=== PATIENT | female | born 1950 | race Caucasian/White ===

== ENCOUNTER 2025-01-11 16:37 | Outpatient (AMB) | payer MEDICARE, SELFPAY ==
--- OUTSIDE RECORDS SUMMARY | 2025-01-11 17:47 | XMS_ITS | Clinical Summary ---
Author Organization [facility] Address [address] [place] [address] Care Team Providers Care [employer] Name Role Phone Jamshid Duran MD Primary Care Provider Allergies Active Allergy Reactions Criticality Noted Date Comments Penicillin V Anaphylaxis High 06/30/2019 Medications atorvastatin (LIPITOR) 20 MG tablet Take 20 mg by mouth. Active clonazePAM (KlonoPIN) 1 MG tablet Take 1 mg by mouth nightly as needed. Active DULoxetine (CYMBALTA) 30 MG capsule Take 30 mg by mouth. Active LORazepam (ATIVAN) 0.5 MG tablet Take 0.5 mg by mouth 4 times daily (every 6 hours) as needed. Active Social History Tobacco Use Types Packs/Day Years Used Date Smoking Tobacco: Never Smokeless Tobacco: Never Alcohol Use Standard Drinks/Week Comments Never 0 (1 standard drink = 0.6 oz pur e alcohol) AUDIT-C Answer Date Recorded Frequency of Alcohol Consumption Never 06/30/2019 Average Number of Drinks Not on file 020 Frequency of Binge Drinking Not on file 09/2019 Comments Unknown Sex and Gender Information Value Date Recorded Sex Assigned at Not on file Legal Sex Female 6:37 PM EST Gender Identity Not on file Sexual Orientation Not on file Last Filed Vital Signs Vital Sign Reading Time Taken Comments Blood Pressure 94/62 01/17/2021 2:50 PM EDT Pulse 65 01/17/2021 2:50 PM EDT Temperature 35.9 C (96.6 F) 01/17/2021 2:50 PM EDT Respiratory Rate 16 01/17/2021 2:50 PM EDT Oxygen Saturation - - Inhaled Oxygen Concentration - - Weight 75.9 kg (167 lb 6.4 oz) 01/17/2021 2:50 P M EDT Height 160 cm (5' 3 ) 01/17/2021 2:50 PM EDT Body Mass Index 29.65 01/17/2021 2:50 PM EDT Plan of Treatment Health Maintenance Due Date Last Done Comments Hepatitis C Virus Screening 1950 DTaP/Tdap/Td Vaccines (1 - Tdap) 02/16/1967 Pneumococcal Vaccines 50+ (1 of 1 - PCV) 02/16/1998 Zoster (Shingles) Vaccine (1 of 2) 02/16/1998 DXA Bone Density (Females,Ag es 65 and older) 02/16/2013 RSV Vaccine 60 years and old er and Patients (1 - 1-dose 75+ series) 02/16/2023 COVID-19 Vaccine ( - 2023-2 5 season) 2024 Influenza Vaccine 12/24/2024 Hepatitis B Vaccines Aged Out No long er eligible based on patient's age to complete this topic Insurance [facility] MEDICARE Care Teams [employer] Relationship Specialty Start Date End Date Jamshid Duran MD [address] [place] [id number] PCP - General 01/17/21
--- OUTSIDE RECORDS SUMMARY | 2025-01-11 17:47 | XMS_ITS ---
Author Name [facility] Organization Unknown History of Medication Use Medication Directions Dispensed Refills Start Date End Date Stat us atorvastatin (LIPITOR) 20 mg tablet Take 1 tablet (20 mg total) by mouth 1 (one) time each day. active gabapentin (NEURONTIN) 300 mg capsule Take 1 capsule (300 mg total) by mouth 2 (two) times a day. active LORazepam (ATIVAN) 0.5 mg tablet Take 1 tablet (0.5 mg total) by mouth every 6 (six) hours if needed. Max Daily Amount: 2 mg active sertraline (ZOLOFT) 100 mg tablet Take 1 tablet (100 mg total) by mouth 1 (one) time each day. active solifenacin succinate (SOLIFENACIN ORAL) Take by mouth. ac tive Allergies Allergen Reaction Severity Comment Documented Date Source Statu s IODINATED CONTRAST MEDIA 03/09/2024 [facility] active POLLEN EXTRACTS COUGH 05/22/2023 [facility] ac tive PENICILLINS ANAPHYLAXIS 2019 [facility] ac tive Problems Problem Status Onset Date Problem Type Date of Resoluti on Source Chronic back pain active 2024-03-09 ProblemAct [facility] Hiatal hernia active 2024-03-09 ProblemAct [facility] Osteopenia active 2024-03-09 ProblemAct [facility] Acquired genu valgum, bilateral active 2023-12-02 ProblemAct [facility] Bilateral leg weakness active 2024-03-10 ProblemAct [facility] Primary osteoarthritis of right knee active 2024-03-10 ProblemAct [facility] Fibromyalgia active 2024-03-09 ProblemAct [facility] CTS (carpal tunnel syndrome) active 2024-03-09 ProblemAct [facility] IgM monoclonal gammopathy of uncertain significance active 2024-03-[address] [facility] Post herpetic neuralgia active 2024-03-09 ProblemAct [facility] Keratosis active 2024-03-09 ProblemAct [facility] Waldenstrom's macroglobulinemia active 2024-03-09 ProblemAct [facility] Depression with anxiety active 2024-03-09 ProblemAct [facility] Spondylosis of lumbosacral region active 2024-03-09 ProblemAct [facility] N Compression fracture of T12 vertebra active 2024-03-10 ProblemAct [facility] Gait instability active 2024-03-10 ProblemAct C [facility] CKD (chronic kidney disease) stage 3, GFR 30-59 ml/min active 2024-03-10 ProblemAct [facility] Migraine without aura active 2024-03-09 ProblemAct [facility] Hyperlipidemia active 2024-03-09 ProblemAct [facility] Primary osteoarthritis of left knee active 2024-03-10 ProblemAct [facility] Immunizations Vaccine Date Source Lot Number Status [facility] SARS-CoV-2 COVID-19, mRNA, LNP-S, preservative free 11/01/2020 [facility] [id number] completed [facility] SARS-CoV-2 COVID-19, mRNA, LNP-S, preservative free 10/11/2020 [facility] [id number] completed
--- OUTSIDE RECORDS SUMMARY | 2025-01-11 17:47 | XMS_ITS | Clinical Summary ---
Author Organization [facility] Address [address] [place] [phone] Phone Care Team Providers Care Test Engineering Manager Name Role Phone Alysa Lucas NP Primary Care Provider Allergies Active Allergy Reactions Criticality Noted Date Comments Iodinated Contrast Media 03/09/2024 Penicillins Anaphylaxis High 2019 Pollen Extracts Cough Medium 05/22/2023 Medications solifenacin succinate (SOLIFENACIN ORAL) Take by mouth. Active atorvastatin (LIPITOR) 20 mg tablet Take 1 tablet (20 mg total) by mouth 1 (one) time each day. Active gabapentin (NEURONTIN) 300 mg capsule Take 1 capsule (300 mg total) by mouth 2 (two) times a day. Active LORazepam (ATIVAN) 0.5 mg tablet Take 1 tablet (0.5 mg total) by mouth every 6 (six) hours if needed. Max Daily Amount: 2 mg Active sertraline (ZOLOFT) 100 mg tablet Take 1 tablet (100 mg total) by mouth 1 (one) time each day. Active Hospital, Clinic, or Other Facility Administered Medication Ordered Dose Route Frequency Start Date End Date Status BUPivacaine HCl (MARCAINE) 0.5 % injection 2 mLIndications:Bilater al knee pain,Primary osteoarthritis of left knee,Primary osteoarthritis of right knee 2 mL inj Once PRN Procedure 01/04/2025 01/04/2025 Ended BUPivacaine HCl (MARCAINE) 0.5 % injection 2 mLIndications:Bilater al knee pain,Primary osteoarthritis of left knee,Primary osteoarthritis of right knee 2 mL inj Once PRN Procedure 01/04/2025 01/04/2025 Ended lidocaine (XYLOCAINE) 1 % injection 2 mLIndications:Bilater al knee pain,Primary osteoarthritis of left knee,Primary osteoarthritis of right knee 2 mL inj Once PRN Procedure 01/04/2025 01/04/2025 Ended lidocaine (XYLOCAINE) 1 % injection 2 mLIndications:Bilater al knee pain,Primary osteoarthritis of left knee,Primary osteoarthritis of right knee 2 mL inj Once PRN Procedure 01/04/2025 01/04/2025 Ended triamcinolone acetonide (KENALOG-40) 40 mg/mL injection 40 mgIndications:Bilater al knee pain,Primary osteoarthritis of left knee,Primary osteoarthritis of right knee 40 mg IAtc Once PRN Procedure 01/04/2025 01/04/2025 Ended triamcinolone acetonide (KENALOG-40) 40 mg/mL injection 40 mgIndications:Bilater al knee pain,Primary osteoarthritis of left knee,Primary osteoarthritis of right knee 40 mg IAtc Once PRN Procedure 01/04/2025 01/04/2025 Ended Active Problems Problem Noted Date Diagnosed Date Bilateral leg weakness 03/10/2024 CKD (chronic kidney disease) stage 3, GFR 30-59 ml/min (CMS/HCC V24, CMS/HCC V28) 03/10/2024 Compression fracture of T12 vertebra (CMS/HCC V24, CMS/HCC V28) 03/10/2024 Gait instability 03/10/2024 Primary osteoarthritis of left knee 03/10/2024 Primary osteoarthritis of right knee 03/10/2024 Chronic back pain 03/09/2024 CTS (carpal tunnel syndrome) 03/09/2024 Depression with anxiety 03/09/2024 Fibromyalgia 03/09/2024 Hiatal hernia 03/09/2024 Hyperlipidemia 03/09/2024 IgM monoclonal gammopathy of uncertain significa nce 03/09/2024 Keratosis 03/09/2024 Migraine without aura 03/09/2024 Osteopenia 03/09/2024 Post herpetic neuralgia 03/09/2024 Spondylosis of lumbosacral region 03/09/2024 Waldenstrom's macroglobulinemia 03/09/2024 Acquired genu valgum, bilateral 12/02/2023 Encounters Date Type Department Care Team Description 01/04/2025 1:00 PM EDT Office Visit Orthopedic Surgery [facility] [address] [phone] Jayme Saldaña MD Bilateral knee pain (Primary Dx); Primary osteoarthritis of left knee; Primary osteoarthritis of right knee from Last 3 Months Immunizations Name Administration Dates Next Due Pfizer SARS-CoV-2 COVID-19, mRNA, LNP-S, preservative free 11/01/2020,10/11/2020 Surgical History Surgery Date Site/Laterality Comments TONSILLECTOMY N/A PROCEDURE: HISTORICAL TONSILLECTOMY HYSTERECTOMY N/A PROCEDURE: HISTORICAL HYSTERECTOMY CHOLECYSTECTOMY N/A PROCEDURE: HISTORICAL CHOLECYSTECTOMY Family History Medical History Relation Name Comments Other: hyperlipidemia Father Heart failure Mother Osteoporosis Mother Other cancer Mother Other: hyperlipidemia Mother Breast cancer Sister 1 Diabetes Sister 1 Mental illness Sister 1 Other: non-hodgkin's lymphoma Sister 1 Leukemia Sister 2 Multiple sclerosis Sister 2 Relation Name Status Comments Father Mother Sister 1 Sister 2 Alive Social History Tobacco Use Types Packs/Day Years Used Date Smoking Tobacco: Never Smokeless Tobacco: Never Alcohol Use Standard Drinks/Week Comments Yes 3 (1 standard drink = 0.6 oz pur e alcohol) Comments Unknown Sex and Gender Information Value Date Recorded Sex Assigned at Not on file Legal Sex Female 8:40 PM EST Gender Identity Not on file Sexual Orientation Not on file Obstetrics History Last Filed Vital Signs Vital Sign Reading Time Taken Comments Blood Pressure - - Pulse - - Temperature - - Respiratory Rate - - Oxygen Saturation - - Inhaled Oxygen Concentration - - Weight 77.1 kg (170 lb) 06/10/2024 3:30 PM EST Height 160 cm (5' 3 ) 06/10/2024 3:30 PM EST Body Mass Index 30.11 06/10/2024 3:30 PM EST Plan of Treatment Upcoming Encounters Date Type Department Care Team (Late st Contact Info) Description 05/11/2025 2:30 PM EST Office Visit Orthopedic Surgery [facility] [address] [phone] Jayme Saldaña MD [address] [phone] Health Maintenance Due Date Last Done Comments COVID-19 Vaccine (3 - Pfizer risk series) 11/29/2020 11/01/2020, 10/11/2020 Cholesterol Screening (Lipid Panel) 04/27/2022 Falls Risk Assessment 04/27/2022 Hepatitis C Screening 04/27/2022 Medicare Annual Wellness Visit 04/27/2022 Osteoporosis Screening (Bone Density Screening) 04/27/2022 Social Influencers of Health Screening 04/27/2022 RSV Immunization Adult Patients (1 - 1-dose 75+ series) 02/16/2023 Depression Screening 05/26/2024 Influenza Vaccine (#1) 2025 DTaP,Tdap,and Td Vaccines (2 - Td or Tdap) 07/31/2026 07/31/2016 Pneumococcal Vaccine: 50+ Years Completed 04/01/2018, 04/28/2017 Zoster Vaccines Completed 10/11/2023, 07/25/2023 HIB Vaccines Aged Out No longer eligi ble based on patient's age to complete this topic HPV Vaccines Aged Out No longer eligi ble based on patient's age to complete this topic Hepatitis A Vaccines Aged Out No long er eligible based on patient's age to complete this topic Hepatitis B Vaccines Aged Out No long er eligible based on patient's age to complete this topic IPV Vaccines Aged Out No longer eligi ble based on patient's age to complete this topic MMR Vaccines Aged Out No longer eligi ble based on patient's age to complete this topic Meningococcal ACWY Vaccine Aged Out N o longer eligible based on patient's age to complete this topic Meningococcal B Vaccine Aged Out No l onger eligible based on patient's age to complete this topic RSV Immunization Patients Under 20 months Aged Out No longer eligible b ased on patient's age to complete this topic Varicella Vaccines Aged Out No longer eligible based on patient's age to complete this topic Procedures Procedure Name Priority Date/Time Associated Diagnosis Comments IL ARTHROCENTESIS/ASP IRATION/INJECTION MAJOR JOINT/BURSA W/O U/S GUIDANCE Routine 01/04/2025 1:00 PM EDT Bilateral knee pain Primary osteoarthritis of left knee Primary osteoarthritis of right knee XR KNEE 4+ VIEWS BILAT Routine 01/04/2025 12:59 PM EDT Bilateral knee pain Primary osteoarthritis of left knee Primary osteoarthritis of right knee from Last 3 Months Results * IL ARTHROCENTESIS/ASPIRATION/INJECTION MAJOR JOINT/BURSA W/O U/S GUIDANCE (01/04/2025 1:00 PM EDT) Narrative Jayme Saldaña MD - 01/04/2025 1:00 PM EDT Jayme Saldaña MD 01/04/2025 3:10 PM L Inj/Asp: bilateral knee Indications: pain Details: 22 G needle, anterolateral approach Medications (Right): 2 mL BUPivacaine HCl 0.5 %; 2 mL lidocaine 1 %; 40 mg triamcinolone acetonide 40 mg/mL Medications (Left): 2 mL BUPivacaine HCl 0.5 %; 2 mL lidocaine 1 %; 40 mg triamcinolone acetonide 40 mg/mL Procedure: After discussion of risks and benefits, informed consent was verbally obtained for BILATERAL knee corticosteroid injections. The lateral arthroscopic soft spots were identified and marked. These were sterilized with chlorhexidine and alcohol. I then injected 2ml of 1% plain Lidocaine, 2ml 0.25% plain bupivacaine, and 40 mg of Kenalog intra-articularly without resistance into each knee. Hemostasis was achieved and sterile Band-Aids were applied. The patient tolerated the procedures well. Postinjection risks and instructions were reviewed including activity modification, cold therapy, potential NSAIDs use, effects on blood sugar levels, and monitoring for signs of complications. Informed Consent: Laterality: Bilateral Relevant images/test results available and reviewed: yes Health status cleared: Yes Procedure/treatment, purpose, treatment alternatives, risks/potential complications and benefits explained: yes Patient questions answered: yes Patient agrees, verbalizes understanding, and wants to proceed: yes Consent given by: Patient Informed consent discussion completed by Physician/EDOUARD with patient: Verbal Pre-procedure timeout performed: yes us Jayme Saldaña MD IN CLINIC/BEDSIDE ORD ERABLES Final Result * XR Knee 4+ Views bilat (01/04/2025 12:59 PM EDT) Anatomical Region Laterality Modality Lower Extremities, Knee Bilateral Computed Radiography Narrative 01/06/2025 7:55 AM EDT 4 views weightbearing bilateral knees obtained today including AP, Ortega, lateral, sunrise were reviewed. Bilateral knees show severe degenerative change involving the lateral compartment including complete joint space narrowing, small marginal size, subchondral sclerosis. Mild degenerative changes involving patellofemoral compartment. Small effusion bilaterally. Neutral alignment bilaterally. Compared to prior x-rays obtained 03/10/2024 right knee now shows [id number] articulation involving the lateral compartment on the lateral view, left knee also shows [id number] articulation involving lateral compartment. Jayme Saldaña MD IMG XR PROCEDURES Fin al Result from Last 3 Months Insurance [employer] [place] - [place] Care Teams Test Engineering Manager Relationship Specialty Start Date End Date Alysa Lucas NP [address] [place], [place] PCP - General 03/11/24
== END 2025-01-11 16:47 | disposition home or self-care (01) ==
LOC: HO.HMGAL 16:37
PROVIDERS: PCP Internal Medicine; Visit Provider Registered Nurse Emergency
DX: J30.89 Other allergic rhinitis (principal)
CPT/HCPCS: 95117; 95165

== ENCOUNTER 2025-02-07 15:44 | Outpatient (AMB) | payer MEDICARE, SELFPAY ==
--- OUTSIDE RECORDS SUMMARY | 2025-02-04 13:41 | XMS_ITS | Encounter Summary ---
Author Organization [facility] Address [address] [place] [phone] Phone Care Team Providers Care International Recruiter Name Role Phone Shannen Tubbs Unavailable Unavailable Wojciech Zuleta MD Unavailable [phone] Alysa Lucas [employer]EE PL[employer]ATION WORKER Primary Care Provider + Encounter Details Date Type Department Care Team (Latest Contact Info) Description 02/04/2025 1:41 PM EDT - 02/04/2025 11:59 PM EDT Hospital Encounter [facility] [address] [place] [address] Ivan Reyes MD, MS [address] [address] [email or web address] Arrived Discharge Disposition: Home or Self Care Social History Tobacco Use Types Packs/Day Years Used Date Smoking Tobacco: Never Smokeless Tobacco: Never Alcohol Use Standard Drinks/Week Comments Not Currently 0 (1 standard drink = 0.6 oz pur e alcohol) Education Answer Date Recorded Are you interested in more education? Not on erika e 09/20/2022 Are you concerned about learning? Not on file 09/20/2022 No 09/20/2022 No 09/20/2022 Digital Access Answer Date Recorded No 10/19/2022 No 10/19/2022 Reliable internet access at home? Not on file 10/19/2022 Device with a working camera? Not on file Intimate Partner Violence Answer Date R ecorded Are you denied basic needs s uch as food, clothing, or medical care? No 10/16/2023 In the past 12 months have y ou been in a relationship with a person who hurts, threatens, or tries to control you? No 10/16/2023 Are you denied basic needs s uch as food, clothing, or medical care? No 10/16/2023 In the past 12 months have y ou been in a relationship with a person who hurts, threatens, or tries to control you? No 10/16/2023 Comments Unknown Sex and Gender Information Value Date Recorded Sex Assigned at Female 10/16/2023 4:28 PM EDT Legal Sex Female 10:37 PM EDT Gender Identity Female 10/16/2023 4:28 PM EDT Sexual Orientation Straight 10/22/2023 9: 43 PM EDT documented as of this encounter Medications at Time of Discharge atorvastatin (LIPITOR) 40 MG tablet Take 1 tablet by mouth every morning. 09/16/2024 cetirizine (ZYRTEC) 10 MG tablet Take 10 mg by mouth daily. esomeprazole (NEXIUM) 20 MG capsule Take 20 mg by mouth daily before breakfast. gabapentin (NEURONTIN) 300 MG capsule Take 600 mg by mouth 3 (three) times a day. LORazepam (ATIVAN) 0.5 MG tablet Take 0.5 mg by mouth every 6 (six) hours as needed for anxiety. Medication-Free Text 2 x month allergy injections sertraline (ZOLOFT) 100 MG tabletIndication s:major depressive disorder Take 100 mg by mouth daily. Indications: major depressive disorder 03/12/2022 solifenacin (VESICARE) 5 MG tablet Take 5 mg by mouth daily. documented as of this encounter Plan of Treatment Upcoming Encounters Date Type Department Care Team (Late st Contact Info) Description 02/10/2025 3:00 PM EDT Office Visit [facility] [place]monary, Allergy and Critical Care Medicine [address] [place] [phone] Ivan Reyes MD, MS 10 [facility] 2nd [place] [address] 04/14/2025 3:20 PM EST Office Visit [facility] [address] [place] [address] Wojciech Zuleta MD [address] [place] [address] [email or web address] documented as of this encounter Procedures Procedure Name Priority Date/Time Associated Diagnosis Comments PULMONARY FUNCTION TEST Routine 02/04/2025 2:16 PM EDT Ground glass opacity present on imaging of lung documented in this encounter Results * Pulmonary Function Test Reason for Exam: Other (specify) (groundglass opacities on chest CT); Type of PFT Test: Spirometry with bronchodilator, Lung Volumes, DLCO; Performing Location: [facility] (02/04/2025 2:16 PM EDT) FEV1 2.21 liters FVC 2.78 liters FEV1/FVC 80 % TLC 4.24 liters DLCO 13.26 ml/mmHg sec Anatomical Region Laterality Modality Other Impressions 02/04/2025 2:16 PM EDT PULMONARY FUNCTION STUDIES Full pulmonary function studies were performed on this 74 y.o. year-old female for evaluation of ground glass opacities. Review of the medical record reveals that the patient is a never smoker. Prior pulmonary function studies are not available for comparison. SPIROMETRY: The FEV1 is normal at 2.21 L or 115% predicted. The FVC is normal at 2.78 L or 111% predicted. The FEV1/FVC ratio is normal at 80%. After the administration of a bronchodilator agent, there is no technically significant change. FLOW-VOLUME LOOPS: Evaluation of the flow-volume loops reveals normal morphology of both the inspiratory and expiratory limbs with no significant difference when comparing the tracings performed pre- and post-bronchodilator. LUNG VOLUME MEASUREMENTS BY PLETHYSMOGRAPHY: The total lung capacity is normal at 4.24 L or 90% predicted. The RV/TLC ratio is normal at 33%. DIFFUSION CAPACITY: The diffusion capacity is mildly impaired (z-score between - 1.65 and -2.5) at 13.3 mL/mmHg sec or 73% predicted. Resting oxygen saturation is 97% on room air. IMPRESSION: Abnormal pulmonary function studies as evidenced primarily by an isolated minimal impairment in diffusion capacity which, in this clinical context, may be secondary to anemia, pulmonary vascular disease and/or early interstitial lung disease. Lung volumes are normal. Spirometry reveals no evidence of airflow limitation and no bronchodilator response. Technical Note: As of 04/06/2024, the [facility] Pulmonary Function Testing (PFT) Laboratory transitioned from using race-specific to using race-neutral equations for determining lung function predicted values for all persons. Due to this change some individuals previously classified as either normal or abnormal may now change from one to the other category without a true change in lung function. Such changes, as well as changes in severity classification, should be considered broadly and in their clinical context. Absolute values of lung function are unaffected. For further questions please contact the interpreting physician or PFT scientific laboratory supervisor. For further discussion of this issue please see [place] et al [facility] 2022;[phone]([id number]. Please Note: Not all PFT labs within, or outside of, our system will be transitioning to new reference equations at the same time. For this reason, please pay close attention to absolute values when comparing results done at different testing locations within or outside of our system. us Ivan Reyes MD, MS PFT ORDERABLES Final Re sult documented in this encounter Visit Diagnoses Diagnosis Ground glass opacity present on imaging of lung documented in this encounter Administered Medications Inactive Administered Medications - up to 3 most recent administrations Medication Order MAR Action Action Date Dose Rate Site albuterol 90 mcg/actuation inhaler 2-4 puff 2-4 puff, Inhalation, Once, On Fri02/04/25 at 1430, For 1 dose, Pulmonary , Shake Well Given 02/04/2025 2:14 PM EDT 2 puffs documented in this encounter Care Teams International Recruiter Relationship Specialty Start Date End Date Alysa Lucas NP [address] [place] [phone] PCP - General Nurse Practitioner 11/30/22 Shannen Tubbs 01/22/19 Wojciech Zuleta MD [address] [place] [phone] [email or web address] Primary Oncologist Medical Oncology 02/13/22 documented as of this encounter Additional Source Comments The information contained in this document represents components of the legal health record. It is not the complete legal health record.[facility]
--- OUTSIDE RECORDS SUMMARY | 2025-02-07 21:02 | XMS_ITS | Encounter Summary ---
Author Organization [facility] Address [address] [place] [address] Phone Care Team Providers Care Darkroom Technician Name Role Phone Shannen Tubbs Unavailable Unavailable Wojciech Zuleta MD Unavailable [phone] Alysa Lucas NP Primary Care Provider + Reason for Referral * MRI/CAT Scan - Closed Specialty Diagnoses / Procedures Referred By Kristofer neff Referred To Contact Radiology Diagnoses Chronic vomiting Procedures MRI Brain CHG MRI BRAIN COMBO CHG MRI BRAIN Fiorella Norwood PA [address] [place] [address] Phone: tel: fax: Referral ID Status Reason Start Date Expiration Date Visits Re quested Visits Authorized [id number] Closed 02/15/2023 02/15/2023 1 1 Encounter Details Date Type Department Care Team (Latest Contact Info) Description 01/20/2023 Transcribe Orders Virtual Department 30 [place] [address] Fiorella Norwood PA [address] [place] [phone] Chronic vomiting (Primary Dx) Social History Tobacco Use Types Packs/Day Years [...] with a working camera? Not on file Comments Unknown Sex and Gender Information Value Date Recorded Sex Assigned at Female 10/16/2023 4:28 PM EDT Legal Sex Female 10:37 PM EDT Gender Identity Female 10/16/2023 4:28 PM EDT Sexual Orientation Straight 10/22/2023 9: 43 PM EDT documented as of this encounter Plan of Treatment Upcoming Encounters Date Type Department Care Team (Late st Contact Info) Description 02/10/2025 3:00 PM EDT [place] [facility] [place] Allergy and Critical Care Medicine 10 [facility] [place] [address] Ivan Reyes MD, MS [address] [address] 04/14/2025 3:20 PM EST Office Visit [facility] at [address] [address] Wojciech Zuleta MD [address] [place] [address] [email or web address] documented as of this encounter Results * MRI BRAIN WITHOUT CONTRAST (02/15/2023 3:24 PM EDT) Anatomical Region Laterality Modality Head Magnetic Resonan ce 02/19/2023 5:24 PM EDT Impressions 02/19/2023 7:44 PM EDT 1. No acute infarct, mass lesion, hemorrhage or hydrocephalus. 2. 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 Narrative 02/19/2023 7:44 PM EDT MRI BRAIN WITHOUT CONTRAST TECHNIQUE: MRI BRAIN WITHOUT CONTRAST Multi-sequence, multi-planar MRI of the brain was performed without intravenous contrast. COMPARISON: MRI BRAIN OUTSIDE (NO INTERPRETATION) FINDINGS: Brain Parenchyma: There is an old infarct in the inferior right parietal lobe developed since February 2016. No evidence of acute infarct, mass lesion, or hemorrhage. Ventricular System and Extra-Axial Spaces: Normal. No evidence of midline shift or hydrocephalus. Extracranial Structures: Arterial flow voids in the skull base are present. Procedure Note Veto Titus MD, PhD - 02/19/2023 MRI BRAIN WITHOUT CONTRAST TECHNIQUE: MRI BRAIN WITHOUT CONTRAST Multi-sequence, multi-planar MRI of the brain was performed withoutintravenous contrast. COMPARISON: MRI BRAIN OUTSIDE (NO INTERPRETATION) FINDINGS: Brain Parenchyma: There is an old infarct in the inferior right parietallobe developed since February 2016. No evidence of acute infarct, masslesion, or hemorrhage. Ventricular System and Extra-Axial Spaces: Normal. No evidence of midlineshift or hydrocephalus. Extracranial Structures: Arterial flow voids in the skull base arepresent. IMPRESSION: 1. No acute infarct, mass lesion, hemorrhage or hydrocephalus. 2. Old infarct in the inferior right parietal lobe developed sinceFebruary 2016. us Fiorella BERMUDEZ IMG MR HEAD/NECK Final Resu lt * FL BARIUM SWALLOW ESOPHAGRAM DOUBLE CONTRAST (02/03/2023 2:02 PM EDT) Anatomical Region Laterality Modality Chest Computed Radiogr aphy 02/03/2023 2:47 PM EDT Impressions 02/04/2023 2:44 PM EDT 1. Small sliding hiatal hernia. 2. Mild, intermittent smooth narrowing of the far distal esophagus immediately proximal to the hiatal hernia may be related to mild esophagitis. No findings suspicious for mass or clinically significant stricture. 3. Moderate esophageal dysmotility. 4. Nonobstructive cricopharyngeus muscle impression, probably clinically insignificant. FLUOROSCOPY TIME: 2 minutes 28 seconds NUMBER OF IMAGES: [id number] ATTESTATION: Juan Kingsley as teaching physician, have reviewed the images for this case and if necessary edited the report originally created by Zi Garcia. Narrative 02/04/2023 2:44 PM EDT BARIUM SWALLOW ESOPHAGRAM DOUBLE CONTRAST HISTORY: Chronic vomiting. Gastroesophageal reflux disease. COMPARISON: CT abdomen 01/03/2022. OPERATORS: Zi Garcia SUPERVISING PHYSICIAN: Juan Calloway TECHNIQUE: Double contrast barium swallow examination was performed with Sodium Carbonate and Barium. FINDINGS: A preliminary lateral view of the neck demonstrates degenerative changes of the cervical spine. No acute bony pathology. ESOPHAGUS: Motility: Moderate dysmotility represented by a diminished primary wave and tertiary contractions. Mucosa: Nonobstructive cricopharyngeus muscle impression visualized. Distensibility: Normal. GASTROESOPHAGEAL JUNCTION: Small sliding hiatal hernia. TABLET: Persistent hold up of a standard 13 mm barium tablet at the level of the GE junction most likely related to dysmotility. GASTROESOPHAGEAL REFLUX: None observed despite provocative maneuvers. Procedure Note Juan Calloway MD - 02/04/2023 BARIUM SWALLOW ESOPHAGRAM DOUBLE CONTRAST HISTORY: Chronic vomiting. Gastroesophageal reflux disease. COMPARISON: CT abdomen 01/03/2022. OPERATORS: Zi Garcia SUPERVISING PHYSICIAN: Juan Calloway TECHNIQUE: Double contrast barium swallow examination was performed withSodium Carbonate and Barium. FINDINGS: A preliminary lateral view of the neck demonstrates degenerative changesof the cervical spine. No acute bony pathology. ESOPHAGUS: Motility: Moderate dysmotility represented by a diminished primary waveand tertiary contractions. Mucosa: Nonobstructive cricopharyngeus muscle impression visualized. Distensibility: Normal. GASTROESOPHAGEAL JUNCTION: Small sliding hiatal hernia. TABLET: Persistent hold up of a standard 13 mm barium tablet at the levelof the GE junction most likely related to dysmotility. GASTROESOPHAGEAL REFLUX: None observed despite provocative maneuvers. IMPRESSION: 1. Small sliding hiatal hernia. 2. Mild, intermittent smooth narrowing of the far distal esophagusimmediately proximal to the hiatal hernia may be related to mildesophagitis. No findings suspicious for mass or clinically significantstricture. 3. Moderate esophageal dysmotility. 4. Nonobstructive cricopharyngeus muscle impression, probably clinicallyinsignificant. FLUOROSCOPY TIME: 2 minutes 28 seconds NUMBER OF IMAGES: 249 ATTESTATION: I, Juan Calloway as teaching physician, have reviewed theimages for this case and if necessary edited the report originally createdby Zi Garcia. us Fiorella BERMUDEZ IMG FL MISC Final Resul t documented in this encounter Visit Diagnoses Diagnosis Chronic vomiting- Primary Vomiting alone Chronic vomiting Vomiting alone Chronic vomiting Vomiting alone documented in this encounter Care Teams Darkroom Technician Relationship Specialty Start Date End Date Alysa Lucas NP [address] [place] [address] PCP - General Nurse Practitioner 11/30/22 Shannen Tubbs 01/22/19 Wojciech Zuleta MD [address] [place] [address] [email or web address] Primary Oncologist Medical Oncology 02/13/22 documented as of this encounter Additional Source Comments The information contained in this document represents components of the legal health record. It is not the complete legal health record.[facility]
--- OUTSIDE RECORDS SUMMARY | 2025-02-07 21:02 | XMS_ITS | Encounter Summary ---
Author Organization [facility] Address [address] [place] [address] Phone Care Team Providers Care Nursing Staffing Coordinator Name Role Phone Shannen Tubbs Unavailable Unavailable Wojciech Zuleta MD Unavailable [phone] Alysa Lucas NP Primary Care Provider + Encounter Details Date Type Department Care Team (Late Contact Info) Description 09/25/2023 Procedure Pass [facility], Ct Scan - [facility] 30 [place] [address] Social History Tobacco Use Types Packs/Day Years [...] Description 02/10/2025 3:00 PM EDT Office Visit [facility] Pulmonary, Allergy and Critical Care Medicine [address] [place], [place] [phone] Ivan Reyes MD, MS 10 [facility] 2nd [place] [address] 04/14/2025 3:20 PM EST Office Visit [facility] 30 [place] [address] Wojciech Zuleta MD [address] [place] [address] documented as of this encounter Visit Diagnoses Not on filedocumented in this encounter Care Teams Nursing Staffing Coordinator Relationship Specialty Start Date End Date Alysa Lucas NP [address] [place] [address] PCP - General Nurse Practitioner 11/30/22 Shannen Tubbs 01/22/19 Wojciech Zuleta MD [address] [place] [address] Primary Oncologist Medical Oncology 02/13/22 documented as of this encounter Additional Source Comments The information contained in this document represents components of the legal health record. It is not the complete legal health record.[facility]
--- OUTSIDE RECORDS SUMMARY | 2025-02-07 21:02 | XMS_ITS | Encounter Summary ---
Author Organization [facility] Address [address] [place] [address] Phone Care Team Providers Care Comptroller Name Role Phone Jamshid Duran MD Primary Care Provider [phone] Shannen Tubbs Unavailable Unavailable Wojciech Zuleta MD Unavailable [phone] Alysa Lucas NP Primary Care Provider + Encounter Details Date Type Department Care Team (Latest Contact Info) Description 11/07/2021 Transcribe Orders [facility] [address] 2nd [place] [address] Romaine Herbert MD [address] [address] Abdominal pain, epigastric (Primary Dx); Nausea; Vomiting, unspecified vomiting type, unspecified whether nausea present; Abdominal pain, right upper quadrant Social History Tobacco Use Types Packs/Day Years [...] Critical Care Medicine [address] [place] [address] Ivan Reyes MD, MS 10 [facility] 2nd [place] [address] 04/14/2025 3:20 PM EST Office Visit [facility] at [address] [address] Wojciech Zuleta MD [address] [place] [address] [email or web address] documented as of this encounter Results * Lipase (11/07/2021 1:53 PM EDT) LIPASE 38 16 - 63 U/L [facility] Blood 11/07/2021 1:53 PM EDT 11/07/2021 1:56 PM EDT us Romaine Herbert MD LAB BLOOD ORDERABLES Final Resul t [address] [address] * (ABNORMAL) Comprehensive metabolic panel (11/07/2021 1:53 PM EDT) SODIUM 140 133 - 146 mmol/L [facility] POTASSIUM 5.4(H) 3.3 - 5.1 mmol/L [facility] CHLORIDE 105 96 - 108 mmol/L [facility] CO2 25 21 - 35 mmol/L [facility] BUN 11 6 - 19 mg/dL [facility] CREATININE 0.90 0.5 - 1.5 mg/dL [facility] GLUCOSE 104(H) 70 - 99 mg/dL [facility] ALBUMIN 4.4 3.9 - 4.8 g/dL [facility] TOTAL PROTEIN 7.1 6.5 - 8.0 g/dL [facility] CALCIUM 9.7 8.4 - 10.3 mg/dL [facility] ALKALINE PHOSPHATASE 76 39 - 117 U/L [facility] TOTAL BILIRUBIN 0.5 0.0 - 1.2 mg/dL [facility] AST 24 0 - 37 U/L [facility] ALT 18 0 - 40 U/L [facility] GLOBULIN 2.7 1 - 4.8 g/dL [facility] EGFR 68 >59 mL/min/1.7 3m2 [facility] Comment:Estimated glomerular filtration rate calculated using the CKD-EPI refit equation. ANION GAP 15 10 - 20 mmol/L [facility] Blood 11/07/2021 1:53 PM EDT 11/07/2021 1:56 PM EDT us Romaine Herbert MD LAB BLOOD ORDERABLES Final Resul t [facility] 30 [place] [address] * CBC (11/07/2021 1:53 PM EDT) WBC 4.63 4.00 - 11.00 K/uL [facility] RBC 4.53 3.72 - 5.30 M/uL [facility] HGB 14.4 11.4 - 15.9 g/dL [facility] HCT 43.9 34.2 - 46.8 % [facility] PLT 316 140 - 430 K/uL [facility] MCV 96.9 78.0 - 97.0 fL [facility] MCH 31.8 25.0 - 33.0 pg [facility] MCHC 32.8 32.0 - 36.0 g/dL [facility] RDW 12.6 11.0 - 16.0 % [facility] MPV 11.9 8.4 - 12.8 fl [facility] NRBC 0.00 0 /100 WBCs [facility] ABSOLUTE NRBC 0.00 0 K/uL [facility] Blood 11/07/2021 1:53 PM EDT 11/07/2021 1:56 PM EDT us Romaine Herbert MD LAB BLOOD ORDERABLES Final Resul t [facility] 30 [place] [address] documented in this encounter Visit Diagnoses Diagnosis Abdominal pain, epigastric- Primary Nausea Nausea alone Vomiting, unspecified vomiting type, unspecified whether nausea present Abdominal pain, right upper quadrant documented in this encounter Care Teams Comptroller Relationship Specialty Start Date End Date Jamshid Duran MD [address] [place] [address] PCP - General Internal Medicine 01/22/19 11/29/22 Alysa Lucas NP [address] [place] [address] PCP - General Nurse Practitioner 11/30/22 Shannen Tubbs 01/22/19 Wojciech Zuleta MD 30 [place] [address] Primary Oncologist Medical Oncology 02/13/22 documented as of this encounter Additional Source Comments The information contained in this document represents components of the legal health record. It is not the complete legal health record.[facility]
--- OUTSIDE RECORDS SUMMARY | 2025-02-07 21:02 | XMS_ITS | Encounter Summary ---
Author Organization [facility] Address [address] [place] [address] Phone Care Team Providers Care Aircraft Mechanic Armament Name Role Phone Shannen Tubbs Unavailable Unavailable Wojciech Zuleta MD Unavailable [phone] Alysa Lucas NP Primary Care Provider + Encounter Details Date Type Department Care Team (Late st Contact Info) Description 06/02/2023 Procedure Pass [facility] Endoscopy Admitting Dept Virtual Department 30 [place] [address] Social History Tobacco Use Types Packs/Day Years [...] Description 02/10/2025 3:00 PM EDT Office Visit [facility] Pulmonary, Allergy and Critical Care Medicine 10 [facility] [place] [address] Ivan Reyes MD, MS 10 [facility] 2nd [place] [address] 04/14/2025 3:20 PM EST Office Visit [facility] 30 [place] [address] Wojciech Zuleta MD 30 [place] [address] [email or web address] documented as of this encounter Visit Diagnoses Not on filedocumented in this encounter Care Teams Aircraft Mechanic Armament Relationship Specialty Start Date End Date Alysa Lucas NP [address] [place] [address] PCP - General Nurse Practitioner 11/30/22 Shannen Tubbs 01/22/19 Wojciech Zuleta MD [address] [place] [address] Primary Oncologist Medical Oncology 02/13/22 documented as of this encounter Additional Source Comments The information contained in this document represents components of the legal health record. It is not the complete legal health record.[facility]
--- OUTSIDE RECORDS SUMMARY | 2025-02-07 21:02 | XMS_ITS | Encounter Summary ---
Author Organization [facility] Address [address] [place] [address] Phone Care Team Providers Care Manager Proposal Name Role Phone Shannen Tubbs Unavailable Unavailable Wojciech Zuleta MD Unavailable [phone] Alysa Lucas NP Primary Care Provider + Encounter Details Date Type Department Care Team (Late Contact Info) Description 09/25/2023 Procedure Pass [facility], Ct Scan - [facility] 30 [place] [address] Social History Tobacco Use Types Packs/Day Years [...] Critical Care Medicine [address] [place], [place] [id number] Ivan Reyes MD, MS 10 [facility] 2nd [place] [address] 04/14/2025 3:20 PM EST Office Visit [facility] 30 [place] [address] Wojciech Zuleta MD [address] [place] [address] documented as of this encounter Visit Diagnoses Not on filedocumented in this encounter Care Teams Manager Proposal Relationship Specialty Start Date End Date Alysa Lucas NP [address] [place] [address] PCP - General Nurse Practitioner 11/30/22 Shannen Tubbs 01/22/19 Wojciech Zuleta MD [address] [place] [address] Primary Oncologist Medical Oncology 02/13/22 documented as of this encounter Additional Source Comments The information contained in this document represents components of the legal health record. It is not the complete legal health record.[facility]
--- OUTSIDE RECORDS SUMMARY | 2025-02-07 21:02 | XMS_ITS | Encounter Summary ---
Author Organization [facility] Address [address] [place] [address] [place] [address] Phone Care Team Providers Care Care Professionals Name Role Phone Shannen Tubbs Unavailable Unavailable Wojciech Zuleta MD Unavailable [phone] Alysa Lucas NP Primary Care Provider + Encounter Details Date Type Department Care Team (Late st Contact Info) Description 12/29/2023 Procedure Pass [facility], Ct Scan - [facility] 30 [place] [address] Social History Tobacco Use Types Packs/Day Years [...] Pulmonary, Allergy and Critical Care Medicine 10 [place] [address] Ivan Reyes MD, MS [address] [address] [email or web address] 04/14/2025 3:20 PM EST Office Visit [facility] at [address] [address] Wojciech Zuleta MD [address] [place] [address] [email or web address] documented as of this encounter Visit Diagnoses Not on filedocumented in this encounter Care Teams Care Professionals Relationship Specialty Start Date End Date Alysa Lucas NP [address] [place] [address] PCP - General Nurse Practitioner 11/30/22 Shannen Tubbs 01/22/19 Wojciech Zuleta MD [address] [place] [address] Primary Oncologist Medical Oncology 02/13/22 documented as of this encounter Additional Source Comments The information contained in this document represents components of the legal health record. It is not the complete legal health record.[facility]
--- OUTSIDE RECORDS SUMMARY | 2025-02-07 21:02 | XMS_ITS | Encounter Summary ---
Author Organization [facility] Address [address] [place] [address] Phone Care Team Providers Care English Instructor Name Role Phone Jamshid Duran MD Primary Care Provider [phone] Shannen Tubbs Unavailable Unavailable Wojciech Zuleta MD Unavailable [phone] Alysa Lucas NP Primary Care Provider + Encounter Details Date Type Department Care Team (Late Contact Info) Description 12/21/2021 Procedure Pass [facility], Ct Scan - [address] [address] Social History Tobacco Use Types Packs/Day Years [...] Pulmonary, Allergy and Critical Care Medicine 10 [place] [address] Ivan Reyes MD, MS 10 [facility] 2nd [place] [address] 04/14/2025 3:20 PM EST Office Visit [facility] 30 [place] [address] Wojciech Zuleta MD 30 [place] [address] [email or web address] documented as of this encounter Visit Diagnoses Not on filedocumented in this encounter Care Teams English Instructor Relationship Specialty Start Date End Date Jamshid Duran MD [address] [place] [address] PCP - General Internal Medicine 01/22/19 11/29/22 Alysa Lucas NP [address] [place], [place] [id number] PCP - General Nurse Practitioner 11/30/22 Shannen Tubbs 01/22/19 Wojciech Zuleta MD 30 [place] [address] [email or web address] Primary Oncologist Medical Oncology 02/13/22 documented as of this encounter Additional Source Comments The information contained in this document represents components of the legal health record. It is not the complete legal health record.[facility]
--- OUTSIDE RECORDS SUMMARY | 2025-02-07 21:02 | XMS_ITS | Encounter Summary ---
Author Organization [facility] Address [address] [place] [address] Phone Care Team Providers Care [employer] Glazer Name Role Phone Shannen Tubbs Unavailable Unavailable Wojciech Zuleta MD Unavailable [phone] Alysa Lucas NP Primary Care Provider + Reason for Referral * Physical Therapy (Routine) - Closed Specialty Diagnoses / Procedures Referred By Kristofer neff Referred To Contact Physical Therapy Diagnoses Encounter for rehabilitation Katlin Aiken NP Phone: tel: fax: [facility] 30 [place] [address] Phone: tel: Referral ID Status Reason Start Date Expiration Date Visits Re quested Visits Authorized [id number] Closed 04/19/2024 04/19/2025 1 1 Encounter Details Date Type Department Care Team (Latest Contact Info) Description 04/19/2024 Transcribe Orders [facility] [address] [place] [address] Katlin Aiken NP [address] [address] Encounter for rehabilitation (Primary Dx) Social History Tobacco Use Types [...] Description 02/10/2025 3:00 PM EDT Office [place] [facility], Allergy and Critical Care Medicine [address] [place] [address] Ivan Reyes MD, MS 10 [facility] 2nd [place] [address] 04/14/2025 3:20 PM EST Office Visit [facility] 30 [place] [address] Wojciech Zuleta MD [address] [place] [address] [email or web address] Scheduled Referrals Name Type Priority Associated Diagnoses Orde r Schedule Ambulatory referral to [facility] Physical Therapy Outpatient Referral Routine Encounter for rehabilitation Ordered: 04/19/2024 documented as of this encounter Visit Diagnoses Diagnosis Encounter for rehabilitation- Primary documented in this encounter Care Teams [employer] Relationship Specialty Start Date End Date Alysa Lucas NP [address] [place] [address] PCP - General Nurse Practitioner 11/30/22 Shannen Tubbs 01/22/19 Wojciech Zuleta MD [address] [place] [address] [email or web address] Primary Oncologist Medical Oncology 02/13/22 documented as of this encounter Additional Source Comments The information contained in this document represents components of the legal health record. It is not the complete legal health record.[facility]
--- OUTSIDE RECORDS SUMMARY | 2025-02-07 21:02 | XMS_ITS | Encounter Summary ---
Author Organization [facility] Address [address] [place] [address] Phone Care Team Providers Care Certified Wellness Program Coordinator Name Role Phone Shannen Tubbs Unavailable Unavailable Wojciech Zuleta MD Unavailable [phone] Alysa Lucas NP Primary Care Provider + Encounter Details Date Type Department Care Team (Late st Contact Info) Description 07/15/2023 Procedure Pass [facility]oscopy Admitting Dept Virtual Department [address] [place] [address] Social History Tobacco Use Types Packs/Day Years [...] Pulmonary, Allergy and Critical Care Medicine [address] [place] [address] Ivan Reyes MD, MS 10 [facility] 2nd [place] [address] 04/14/2025 3:20 PM EST Office Visit [facility] at [facility] [address] [place] [address] Wojciech Zuleta MD 30 [place] [address] [email or web address] documented as of this encounter Visit Diagnoses Not on filedocumented in this encounter Care Teams Certified Wellness Program Coordinator Relationship Specialty Start Date End Date Alysa Lucas NP [address] [place] [address] PCP - General Nurse Practitioner 11/30/22 Shannen Tubbs 01/22/19 Wojciech Zuleta MD [address] [place] [address] Primary Oncologist Medical Oncology 02/13/22 documented as of this encounter Additional Source Comments The information contained in this document represents components of the legal health record. It is not the complete legal health record.[facility]
--- OUTSIDE RECORDS SUMMARY | 2025-02-07 21:02 | XMS_ITS | Encounter Summary ---
Author Organization [facility] Address [address] [place] [address] Phone Care Team Providers Care Pediatric Ophthalmologist Name Role Phone Shannen Tubbs Unavailable Unavailable Wojciech Zuleta MD Unavailable [phone] Alysa Lucas NP Primary Care Provider + Encounter Details Date Type Department Care Team (Audra Contact Info) Description 01/21/2023 Procedure Pass [facility], [facility] 30 [place] [address] Social History Tobacco Use Types Packs/Day Years [...] Upcoming Encounters Date Type Department Care Team (Aurda briones Contact Info) Description 02/10/2025 3:00 PM EDT Office Visit [facility] Pulmonary, Allergy and Critical Care Medicine [address] [place] [address] Ivan Reyes MD, MS 10 [facility] 2nd [place] [address] 04/14/2025 3:20 PM EST Office Visit [facility] at [facility] 30 [place] [address] Wojciech Zuleta MD 30 [place] [address] [email or web address] documented as of this encounter Visit Diagnoses Not on filedocumented in this encounter Care Teams Pediatric Ophthalmologist Relationship Specialty Start Date End Date Alysa Lucas NP [address] [place] [address] PCP - General Nurse Practitioner 11/30/22 Shannen Tubbs 01/22/19 Wojciech Zuleta MD [address] [place] [address] Primary Oncologist Medical Oncology 02/13/22 documented as of this encounter Additional Source Comments The information contained in this document represents components of the legal health record. It is not the complete legal health record.[facility]
--- OUTSIDE RECORDS SUMMARY | 2025-02-07 21:02 | XMS_ITS | Encounter Summary ---
Author Organization [facility] Address [address] [place] [address] Phone Care Team Providers Care Cadet Deck Name Role Phone Shannen Tubbs Unavailable Unavailable Wojciech Zuleta MD Unavailable [phone] Alysa Lucas NP Primary Care Provider + Encounter Details Date Type Department Care Team (Late st Contact Info) Description 05/28/2023 Procedure Pass [facility] Endoscopy Admitting Dept Virtual Department [address] [place] [address] Social History Tobacco Use Types Packs/Day Years [...] Pulmonary, Allergy and Critical Care Medicine [address] [facility] [place] [address] Ivan Reyes MD, MS 10 [facility] 2nd [place] [address] 04/14/2025 3:20 PM EST Office Visit [facility] at [facility] 30 [place] [address] Wojciech Zuleta MD 30 [place] [address] [email or web address] documented as of this encounter Visit Diagnoses Not on filedocumented in this encounter Care Teams Cadet Deck Relationship Specialty Start Date End Date Alysa Lucas NP [address] [place] [address] PCP - General Nurse Practitioner 11/30/22 Shannen Tubbs 01/22/19 Wojciech Zuleta MD [address] [place] [address] Primary Oncologist Medical Oncology 02/13/22 documented as of this encounter Additional Source Comments The information contained in this document represents components of the legal health record. It is not the complete legal health record.[facility]
--- OUTSIDE RECORDS SUMMARY | 2025-02-07 21:02 | XMS_ITS | Encounter Summary ---
Author Organization [facility] Address [address] [place] [address] [place] [address] Phone Care Team Providers Care Handle Lathe Operator Name Role Phone Shannen Tubbs Unavailable Unavailable Wojciech Zuleta MD Unavailable [phone] Alysa Lucas NP Primary Care Provider + Encounter Details Date Type Department Care Team (Late st Contact Info) Description 09/24/2024 Procedure Pass [facility], Ct Scan - [facility] 30 [place] [address] Social History Tobacco Use Types Packs/Day Years [...] Pulmonary, Allergy and Critical Care Medicine 10 [place] [address] Ivan Reyes MD, MS [address] [address] [email or web address] 04/14/2025 3:20 PM EST Office Visit [facility] at [address] [address] Wojciech Zuleta MD [address] [place] [address] [email or web address] documented as of this encounter Visit Diagnoses Not on filedocumented in this encounter Care Teams Handle Lathe Operator Relationship Specialty Start Date End Date Alysa Lucas NP [address] [place] [address] PCP - General Nurse Practitioner 11/30/22 Shannen Tubbs 01/22/19 Wojciech Zuleta MD [address] [place] [address] Primary Oncologist Medical Oncology 02/13/22 documented as of this encounter Additional Source Comments The information contained in this document represents components of the legal health record. It is not the complete legal health record.[facility]
--- OUTSIDE RECORDS SUMMARY | 2025-02-07 21:02 | XMS_ITS | Clinical Summary ---
Author Organization [facility] Address [address] [place] [address] Phone Care Team Providers Care Parts Analyst Name Role Phone Shannen Tubbs Unavailable Unavailable Wojciech Zuleta MD Unavailable [phone] Alysa Lucas DETONATOR MAKER Primary Care Provider + Allergies Active Allergy Reactions Criticality Noted Date Comments Iodinated Contrast Media Swelling Medium 04/02/2022 Penicillins Anaphylaxis High 2019 Pollen Extracts Cough Medium 05/22/2023 Medications LORazepam (ATIVAN) 0.5 MG tablet Take 0.5 mg by mouth every 6 (six) hours as needed for anxiety. Active sertraline (ZOLOFT) 100 MG tabletIndicatio ns:major depressive disorder Take 100 mg by mouth daily. Indications: major depressive disorder 2 Active Medication-Free Text 2 x month allergy injections Active gabapentin (NEURONTIN) 300 MG capsule Take 600 mg by mouth 3 (three) times a day. Active solifenacin (VESICARE) 5 MG tablet Take 5 mg by mouth daily. Active atorvastatin (LIPITOR) 40 MG tablet Take 1 tablet by mouth every morning. 5 Active cetirizine (ZYRTEC) 10 MG tablet Take 10 mg by mouth daily. Active esomeprazole (NEXIUM) 20 MG capsule Take 20 mg by mouth daily before breakfast. Active Active Problems Patient Care Coordination No te Formatting of this note migh t be different from the original. 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 Ground glass opacity present on imaging of lung 08/18/2024 Assessment & Plan (09/24/2024 3:32 PM EDT): Etiology for this is unclear, though she denies any significant respiratory symptoms except for an acute episode of presumed viral bronchitis or bronchopneumonia around the time of her recent chest CT scan. In this context, we agreed to repeat a chest CT scan in 3 months for reevaluation. I will also obtain baseline pulmonary function testing, even though she is essentially symptomatic, as we have now been chasing these waxing and waning GGO's on 3 sequential cross-sectional imaging studies. History is not suggestive of any inhalant toxic exposure or suggestive of hypersensitive pneumonitis. I will see her in follow-up in 3 months after testing. Orders: CT Chest; Future Pulmonary Function Test Reason for Exam: Other (specify) (groundglass opacities on chest CT); Type of PFT Test: Spirometry with bronchodilator, Lung Volumes, DLCO; Performing Location: [facility]; Future albuterol 90 mcg/actuation inhaler 2-4 puff albuterol 2.5 mg /3 mL (0.083 %) nebulizer solution 2.5 mg Assessment & Plan (08/18/2024 1:49 PM EDT): The etiology however waxing and waning pulmonary parenchymal abnormalities, primarily patchy groundglass opacities, is unclear. An inflammatory/infectious etiology is suspected, though recurrent aspiration given her history of severe GERD is also a possibility (though seems less likely given absence of symptoms currently). Her history of Waldenstr m's macroglobulinemia may place her at slightly increased risk for nontuberculous mycobacterial pulmonary infections, though at this point I see no indication to aggressively pursue invasive diagnostic testing (such as bronchoscopy). We will plan a repeat chest CT scan in weeks to (as it has been more than 3 months since her most recent cross-sectional imaging study) and reconvene after testing. Orders: CT Chest; Future Compression fracture of T12 vertebra 03/10/2024 Gait instability 03/10/2024 Spondylosis of lumbosacral region 03/09/2024 Post herpetic neuralgia 03/09/2024 Migraine without aura 03/09/2024 Hiatal hernia 03/09/2024 Overview (09/24/2024): upper endos 12/17/2012 Depression with anxiety 03/09/2024 CTS (carpal tunnel syndrome) 03/09/2024 Overview (09/24/2024): BILAT Fibromyalgia 03/09/2024 Primary osteoarthritis of both knees 12/02/2023 Acquired genu valgum, bilateral 12/02/2023 Osteopenia 08/10/2023 Overview (09/24/2024): 07/2014 by Bone density, due 07/2016 Hyperlipidemia 08/10/2023 Disorder of sacrum 02/06/2023 Waldenstrom's macroglobulinemia 04/02/2022 Assessment & Plan (09/24/2024 3:32 PM EDT): I discussed her case with Dr. Zuleta, who manages her Waldenstr m's macroglobulinemia, and while there have been rare reports of pulmonary involvement with that disease, it would seem unlikely and, as long as she remains asymptomatic without overt progression of her hematologic or pulmonary abnormalities, this would be unlikely to alter treatment decisions. Assessment & Plan (08/18/2024 1:49 PM EDT): Followed by Dr. Zuleta. As above, this may be contributing to chest CT findings. Orders: CT Chest; Future Resolved Problems Problem Noted Date Diagnosed Date Resolved Date Primary osteoarthritis of right knee 03/10/2024 09/24/2024 Primary osteoarthritis of left knee 03/10/2024 09/24/2024 CKD (chronic kidney disease) stage 3, GFR 30-59 ml/min 03/10/2024 09/24/2024 Keratosis 03/09/2024 09/24/2024 Encounters Date Type Department Care Team Description 02/04/2025 1:41 PM EDT - 02/04/2025 11:59 PM EDT Hospital Encounter [facility] [address] [place] [address] Ivan Reyes MD, MS Arrived Discharge Disposition: Home or Self Care 01/26/2025 Transcribe Orders [facility] [address] [place] [address] Ivan Reyes MD, MS 12/20/2024 4:07 PM EDT - 12/20/2024 11:59 PM EDT Hospital Encounter [facility], [address] [address] Ivan Reyes MD, MS Discharge Disposition: Home or Self Care 09/24/2024 Procedure Pass [facility], [address] [address] from Last 3 Months Immunizations Immunization Administration Dates Next Due COVID-19 (Pre-03/17) Pfizer Vaccine, mRNA, PF ,10/11/2020 Pneumococcal conjugate PCV13 04/28/2017,04/28/20 17 Pneumococcal polysaccharide PPSV23 04/01/2018 Td, unspecified formulation 07/31/2016 Family History Medical History Relation Comments Asthma Sister Relation Status Comments Sister Social History Tobacco Use Types Packs/Day Years Used Date Smoking Tobacco: Never Smokeless Tobacco: Never Tobacco Cessation:Counseling Given: Not Answered Alcohol Use Standard Drinks/Week Comments Not Currently [...] Orientation Straight 10/22/2023 9: 43 PM EDT Last Filed Vital Signs Vital Sign Reading Time Taken Comments Blood Pressure 104/75 10/05/2024 3:04 PM EDT Pulse 92 10/05/2024 3:04 PM EDT Temperature 36.2 C (97.2 F) 10/05/2024 3:04 PM EDT Respiratory Rate 20 10/16/2023 10:13 PM EDT Oxygen Saturation 95% 10/05/2024 3:04 PM EDT Inhaled Oxygen Concentration - - Weight 76.4 kg (168 lb 6.4 oz) 10/05/2024 3:04 P M EDT Height 160.2 cm (5' 3.07 ) 10/05/2024 3:04 PM ED T Body Mass Index 29.76 10/05/2024 3:04 PM EDT Plan of Treatment Upcoming Encounters Date Type Department Care Team (Late st Contact Info) Description 02/10/2025 3:00 PM EDT Office Visit [facility] Pulmonary, Allergy and Critical Care Medicine [address] [place] [address] Ivan Reyes MD, MS 10 [facility] 2nd [place] [address] 04/14/2025 3:20 PM EST Office Visit [facility] 30 [place] [address] Wojciech Zuleta MD [address] [place] [address] [email or web address] Health Maintenance Due Date Last Done Comments LIPID PANEL 1948 DEPRESSION SCREENING 1960 HEPATITIS C SCREENING 02/16/1966 ZOSTER VACCINES (1 of 2) 02/16/1967 OSTEOPOROSIS SCREENING INITI AL (ONE-TIME) 02/16/2013 RSV VACCINE (1 - 1-dose 75+ series) 02/16/2023 INFLUENZA VACCINE (#1) 2024 COVID-19 VACCINE (3 - 2024-2 6 season) 2025 11/01/2020, 10/11/2020 Adult Td,Tdap Booster 07/31/2026 07/31/2016 PNEUMOCOCCAL VACCINES (50+ years) Completed 04/01/2018, 04/28/2017, 04/28/2017 SMOKING STATUS SCREENING (On ce After 26 Yrs) Completed 10/05/2024 HEPATITIS A VACCINES Aged Out No long er eligible based on patient's age to complete this topic HIB VACCINES Aged Out No longer eligi ble based on patient's age to complete this topic MENINGOCOCCAL VACCINES (ACWY) Aged Out No longer eligible based on patient's age to complete this topic MENINGOCOCCAL VACCINES (B) Aged Out N o longer eligible based on patient's age to complete this topic Medical Devices Not on file Procedures Procedure Name Priority Date/Time Associated Diagnosis Comments PULMONARY FUNCTION TEST Routine 02/04/2025 2:16 PM EDT Ground glass opacity present on imaging of lung CT CHEST WITHOUT CONTRAST Routine 12/20/2024 4:15 PM EDT Ground glass opacity present on imaging of lung from Last 3 Months Results * Pulmonary Function Test Reason for Exam: Other (specify) (groundglass opacities on chest CT); Type of PFT Test: Spirometry with bronchodilator, Lung Volumes, DLCO; Performing Location: [facility] (02/04/2025 2:16 PM EDT) FEV1 2.21 liters [...] response. Technical Note: As of 04/06/2024, the [facility] Pulmonary Function Testing (PFT) Laboratory transitioned from [...] please contact the interpreting physician or PFT paint laboratory technician. For further discussion of this issue please see Felicia [facility] 2022;[phone]([phone]. Please Note: Not all PFT labs within, or outside of, our system will be transitioning to new reference equations at the same time. For this reason, please pay close attention to absolute values when comparing results done at different testing locations within or outside of our system. us Ivan Reyes MD, MS PFT ORDERABLES Final Re sult * CT CHEST WITHOUT CONTRAST (12/20/2024 4:15 PM EDT) Anatomical Region Laterality Modality Chest Computed Tomogra phy 12/25/2024 2:20 PM EDT Impressions 12/25/2024 2:31 PM EDT * Decreased multifocal patchy groundglass opacities involving all lung lobes. The appearance is now similar to the index chest CT on 10/06/2023. Waxing and waning infectious/inflammatory etiologies favored. * Resolved previously new pulmonary nodules. * New nonspecific 2 mm nodule in the left lower lobe. RECOMMENDATIONS: Follow-up chest CT in 6 months. Narrative 12/25/2024 2:[address] CHEST WITHOUT CONTRAST Referring clinician's provided indication for this examination in [facility]: * Interstitial lung disease; patchy GGO which have been waxing and waning, recent scan done while suffering from URI/viral infection, knonw Waldenstrom TECHNIQUE: Multidetector CT of the chest was performed without intravenous contrast using tailored dose modulation. COMPARISON: CT CHEST WITHOUT CONTRAST ; CT CHEST WITH CONTRAST FINDINGS: Devices/Tubes/Lines: None. Lungs: Patent central airways. Decreased multifocal patchy groundglass opacities bilaterally involving all lung lobes. Resolution of multiple previously new nodules. New 2 mm solid nodule in the left lower lobe (4:155). Unchanged other scattered 2 mm calcified and noncalcified nodules, for example in the right middle lobe (4:146). Pleura: No pleural effusion or pneumothorax. Mediastinum: No thyroid nodules. Normal heart size. Trace pericardial fluid inferiorly, likely physiologic. Lymph Nodes: No enlarged supraclavicular, axillary, mediastinal, or hilar lymph nodes. Upper Abdomen: Cholecystectomy. No abnormality detected in the visualized upper abdomen. Absence of intravenous contrast limits sensitivity for detecting solid organ findings. Chest Wall: No chest wall mass. Bones: Skeletal degenerative changes. No suspicious lytic or blastic lesions. Procedure Note Olya Morales MD, PhD - 12/25/2024 CT CHEST WITHOUT CONTRAST Referring clinician's provided indication for this examination in [facility]: *Interstitial lung disease; patchy GGO which have been waxing and waning,recent scan done while suffering from URI/viral infection, knonwWaldenstrom TECHNIQUE: Multidetector CT of the chest was performed without intravenouscontrast using tailored dose modulation. COMPARISON: CT CHEST WITHOUT CONTRAST ; CT CHEST WITH [id number] FINDINGS: Devices/Tubes/Lines: None. Lungs: Patent central airways. Decreased multifocal patchy groundglassopacities bilaterally involving all lung lobes. Resolution of multiplepreviously new nodules. New 2 mm solid nodule in the left lower lobe(4:155). Unchanged other scattered 2 mm calcified and noncalcifiednodules, for example in the right middle lobe (4:146). Pleura: No pleural effusion or pneumothorax. Mediastinum: No thyroid nodules. Normal heart size. Trace pericardialfluid inferiorly, likely physiologic. Lymph Nodes: No enlarged supraclavicular, axillary, mediastinal, or hilarlymph nodes. Upper Abdomen: Cholecystectomy. No abnormality detected in the visualizedupper abdomen. Absence of intravenous contrast limits sensitivity fordetecting solid organ findings. Chest Wall: No chest wall mass. Bones: Skeletal degenerative changes. No suspicious lytic or blasticlesions. IMPRESSION: * Decreased multifocal patchy groundglass opacities involving all lunglobes. The appearance is now similar to the index chest CT on 10/06/2023.Waxing and waning infectious/inflammatory etiologies favored. * Resolved previously new pulmonary nodules. * New nonspecific 2 mm nodule in the left lower lobe. RECOMMENDATIONS: Follow-up chest CT in 6 months. Ivan Reyes MD, MS IMG CT CHEST Final Re sult from Last 3 Months Insurance [facility] MED[facility] HMO REPLACEMENT MEDICARE PART A & [facility] MED[facility]MO REPLACEMENT MEDICARE PART A & B [facility]MO REPLACEMENT MEDICARE HMO REPLACEMENT [facility] MEDICARE HMO REPLACEMENT MEDICARE PART A & B [facility] MEDIC[facility] HMO REPLACEMENT [facility] MEDIC[facility] HMO REPLACEMENT MEDICARE PART A & B [facility] MEDIC[facility] HMO REPLACEMENT MEDICARE PART A & [facility] MEDIC[facility] HMO REPLACEMENT MEDICARE PART A & B [facility] Care Teams Parts Analyst Relationship Specialty Start Date End Date Alysa Lucas NP [address] [place] [address] PCP - General Nurse Practitioner 11/30/22 Shannen Tubbs 01/22/19 Wojciech Zuleta MD [address] [place] [address] [email or web address] Primary Oncologist Medical Oncology 02/13/22 Additional Source Comments The information contained in this document represents components of the legal health record. It is not the complete legal health record.[facility]
--- OUTSIDE RECORDS SUMMARY | 2025-02-07 21:02 | XMS_ITS | Encounter Summary ---
Author Organization [facility] Address [address] [place] [address] Phone Care Team Providers Care Master Ship Name Role Phone Shannen Tubbs Unavailable Unavailable Wojciech Zuleta MD Unavailable [phone] Alysa Lucas NP Primary Care Provider + Encounter Details Date Type Department Care Team (Late Contact Info) Description 09/25/2023 Procedure Pass [facility], Ct Scan - [facility] [address] [place] [address] Social History Tobacco Use Types Packs/Day Years [...] Critical Care Medicine [address] [place], [place] [address] Ivan Reyes MD, MS 10 [facility] 2nd [place] [address] 04/14/2025 3:20 PM EST Office Visit [facility] at [facility] [address] [place] [address] Wojciech Zuleta MD [address] [place] [address] documented as of this encounter Visit Diagnoses Not on filedocumented in this encounter Care Teams Master Ship Relationship Specialty Start Date End Date Alyas Lucas NP [address] [place] [address] PCP - General Nurse Practitioner 11/30/22 Shannen Tubbs 01/22/19 Wojciech Zuleta MD [address] [place] [address] Primary Oncologist Medical Oncology 02/13/22 documented as of this encounter Additional Source Comments The information contained in this document represents components of the legal health record. It is not the complete legal health record.[facility]
--- OUTSIDE RECORDS SUMMARY | 2025-02-07 21:02 | XMS_ITS | Encounter Summary ---
Author Organization [facility] Address [address] [place] [address] Phone Care Team Providers Care Drafter Geological Name Role Phone Shannen Tubbs Unavailable Unavailable Wojciech Zuleta MD Unavailable [phone] Alysa Lucas NP Primary Care Provider + Encounter Details Date Type Department Care Team (Late st Contact Info) Description 05/27/2023 Procedure Pass [facility] Endoscopy Admitting Dept Virtual Department 30 [place] [address] Social History Tobacco Use Types Packs/Day Years [...] Pulmonary, Allergy and Critical Care Medicine 10 [facility] [place] [address] Ivan Reyes MD, [place] 10 [facility] 2nd [place] [address] 04/14/2025 3:20 PM EST Office Visit [facility] at [facility] 30 [place] [address] Wojciech Zuleta MD 30 [place] [address] [email or web address] documented as of this encounter Visit Diagnoses Not on filedocumented in this encounter Care Teams Drafter Geological Relationship Specialty Start Date End Date Alysa Lucas NP [address] [place] [address] PCP - General Nurse Practitioner 11/30/22 Shannen Tubbs 01/22/19 Wojciech Zuleta MD [address] [place] [address] Primary Oncologist Medical Oncology 02/13/22 documented as of this encounter Additional Source Comments The information contained in this document represents components of the legal health record. It is not the complete legal health record.[facility]
--- OUTSIDE RECORDS SUMMARY | 2025-02-07 21:02 | XMS_ITS | Encounter Summary ---
Author Organization [facility] Address [address] [place] [address] Phone Care Team Providers Care Nylon Winder Name Role Phone Jamshid Duran MD Primary Care Provider [phone] Shannen Tubbs Unavailable Unavailable Wojciech Zuleta MD Unavailable [phone] Alysa Lucas NP Primary Care Provider + Reason for Referral * Outpatient Procedure - Closed Specialty Diagnoses / Procedures Referred By Kristofer neff Referred To Contact Radiology Diagnoses Nausea and vomiting, unspecified vomiting type Procedures NM Gastric Emptying Romaine Herbert MD Phone: tel: fax: mailto: Referral ID Status Reason Start Date Expiration Date Visits Re quested Visits Authorized [id number] Closed 11/07/2021 11/07/2022 1 1 Encounter Details Date Type Department Care Team (Latest Contact Info) Description 11/07/2021 Transcribe Orders Virtual Department 30 [place] [address] Romaine Herbert MD [address] [place] [address] Nausea and vomiting, unspecified vomiting type (Primary Dx) Social History Tobacco Use Types [...] Description 02/10/2025 3:00 PM EDT Office Visit [facility] Pulmonary, Allergy and Critical Care Medicine [address] [place] [address] [place] [address] Ivan Reyes MD, MS [address] [place] [address] [email or web address] 04/14/2025 3:20 PM EST Office Visit [facility] at [address] [address] Wojciech Zuleta MD [address] [place] [address] [email or web address] documented as of this encounter Results * NM GASTRIC EMPTYING SOLID PHASE (11/29/2021 1:38 PM EDT) Anatomical Region Laterality Modality Abdomen, Pelvis Nuclear Medicine 11/29/2021 4:57 PM EDT Impressions 11/29/2021 4:58 PM EDT Solid phase gastric emptying values as above. Narrative 11/29/2021 4:58 PM EDT NM GASTRIC EMPTYING SOLID PHASE Radionuclide gastric emptying scan: COMPARISON: There is no prior study available for comparison. TECHNIQUE: 0.987 mCi technetium 99m sulphur colloid was given orally as a standard solid phase meal. Intermittent upright imaging of the abdomen was performed immediately, and at 1, 2, and 4 hours. FINDINGS: Gastric emptying was 35.3% at 1 hour, 81.5% at 2 hours and 98.6% at 4 hours. According to accepted international standards using this technique, median normal values for emptying are: 31% at 1hr, 76% at 2hrs, and 99% at 4 hours. 5th percentile values for emptying are: 10% at 1 hr, 40% at 2hrs, and 90% at 4 hours. Procedure Note Claudine Perez MD - 11/29/2021 NM GASTRIC EMPTYING SOLID PHASE Radionuclide gastric emptying scan: COMPARISON: There is no prior study available for comparison. TECHNIQUE: 0.987 mCi technetium 99m sulphur colloid was given orally as a standardsolid phase meal. Intermittent upright imaging of the abdomen wasperformed immediately, and at 1, 2, and 4 hours. FINDINGS: Gastric emptying was 35.3% at 1 hour, 81.5% at 2 hours and 98.6% at 4hours. According to accepted international standards using this technique, mediannormal values for emptying are: 31% at 1hr, 76% at 2hrs, and 99% at 4 hours. 5th percentile values for emptying are: 10% at 1 hr, 40% at 2hrs, and 90% at 4 hours. IMPRESSION: Solid phase gastric emptying values as above. Romaine Herbert MD [facility] ABDOMEN Final Result documented in this encounter Visit Diagnoses Diagnosis Nausea and vomiting, unspecified vomiting type- Primary Nausea and vomiting, unspecified vomiting type documented in this encounter Care Teams Nylon Winder Relationship Specialty Start Date End Date Jamshid Duran MD [address] [place] [address] [address] [place] [address] PCP - General Internal Medicine 01/22/19 11/29/22 [place] [address] PCP - General Nurse Practitioner 11/30/22 Shannen Tubbs 01/22/19 Wojciech Zuleta MD [address] [place] [address] [email or web address] Primary Oncologist Medical Oncology 02/13/22 documented as of this encounter Additional Source Comments The information contained in this document represents components of the legal health record. It is not the complete legal health record.[facility]
--- OUTSIDE RECORDS SUMMARY | 2025-02-07 21:02 | XMS_ITS | Encounter Summary ---
Author Organization [facility] Address [address] [place] [address] Phone Care Team Providers Care Dietary Services Manager Name Role Phone Shannen Tubbs Unavailable Unavailable Wojciech Zuleta MD Unavailable [phone] Alysa Lucas NP Primary Care Provider + Encounter Details Date Type Department Care Team (Late st Contact Info) Description 02/14/2023 Procedure Pass [facility] Endoscopy Admitting Dept Virtual Department 30 [place] [address] Social History Tobacco Use Types Packs/Day Years [...] and Critical Care Medicine 10 [facility] [place] [address] Ivan Reyes MD, MS 10 [facility] 2nd [place] [address] 04/14/2025 3:20 PM EST Office Visit [facility] at [facility] 30 [place] [address] Wojciech Zultea MD 30 [place] [address] [email or web address] documented as of this encounter Visit Diagnoses Not on filedocumented in this encounter Care Teams Dietary Services Manager Relationship Specialty Start Date End Date Alysa Lucas NP [address] [place] [address] PCP - General Nurse Practitioner 11/30/22 Shannen Tubbs 01/22/19 Wojciech Zuleta MD [address] [place] [address] Primary Oncologist Medical Oncology 02/13/22 documented as of this encounter Additional Source Comments The information contained in this document represents components of the legal health record. It is not the complete legal health record.[facility]
--- OUTSIDE RECORDS SUMMARY | 2025-02-07 21:02 | XMS_ITS | Encounter Summary ---
Author Organization [facility] Address [address] [place] [address] Phone Care Team Providers Care Shoemaker Custom Name Role Phone Jamshid Duran MD Primary Care Provider [phone] Shannen Tubbs Unavailable Unavailable Wojciech Zuleta MD Unavailable [phone] Alysa Lucas NP Primary Care Provider + Encounter Details Date Type Department Care Team (Latest Contact Info) Description 07/12/2021 Transcribe Orders Virtual Department 30 [place] [address] Romaine Herbert MD [address] [place] [address] [email or web address] Vomiting, intractability of vomiting not specified, presence of nausea not specified, unspecified vomiting type (Primary Dx) Social History [...] Upcoming Encounters Date Type Department Care Team ( Contact Info) Description 02/10/2025 3:00 PM EDT Office Visit [facility] Pulmonary, Allergy and Critical Care Medicine [address] [place] [address] Ivan Reyes MD, MS 10 [facility] 2nd [place] [address] 04/14/2025 3:20 PM EST Office Visit [facility] 30 [place] [address] Wojciech Zuleta MD 30 [place] [address] [email or web address] documented as of this encounter Visit Diagnoses Diagnosis Vomiting, intractability of vomiting not specified, presence of nausea not specified, unspecified vomiting type- Primary documented in this encounter Care Teams Shoemaker Custom Relationship Specialty Start Date End Date Jamshid Duran MD 46 [facility] [address] [place] [address] PCP - General Internal Medicine 01/22/19 11/29/22 Alysa Lucas NP 46 [place] [address] PCP - General Nurse Practitioner 11/30/22 Shannen Tubbs 01/22/19 Wojciech Zuleta MD [address] [place] [address] Primary Oncologist Medical Oncology 02/13/22 documented as of this encounter Additional Source Comments The information contained in this document represents components of the legal health record. It is not the complete legal health record.[facility]
--- OUTSIDE RECORDS SUMMARY | 2025-02-07 21:02 | XMS_ITS | Encounter Summary ---
Author Organization [facility] Address [address] [place] [address] [place] [address] Phone Care Team Providers Care Player Services Representative Name Role Phone Shannen Tubbs Unavailable Unavailable Wojciech Zuleta MD Unavailable [phone] Alysa Lucas NP Primary Care Provider + Encounter Details Date Type Department Care Team (Late st Contact Info) Description 08/18/2024 Procedure Pass [facility], Ct Scan - [facility] 30 [place] [address] Social History Tobacco Use Types Packs/Day Years [...] Pulmonary, Allergy and Critical Care Medicine 10 [place] [address] Ivan Reyes MD, MS [address] [address] [email or web address] 04/14/2025 3:20 PM EST Office Visit [facility] at [address] [address] Wojciech Zuleta MD [address] [place] [address] [email or web address] documented as of this encounter Visit Diagnoses Not on filedocumented in this encounter Care Teams Player Services Representative Relationship Specialty Start Date End Date Alysa Lucas NP [address] [place] [address] PCP - General Nurse Practitioner 11/30/22 Shannen Tubbs 01/22/19 Wojciech Zuleta MD [address] [place] [address] Primary Oncologist Medical Oncology 02/13/22 documented as of this encounter Additional Source Comments The information contained in this document represents components of the legal health record. It is not the complete legal health record.[facility]
--- OUTSIDE RECORDS SUMMARY | 2025-02-07 21:02 | XMS_ITS | Clinical Summary ---
Author Organization [facility] Address [address] [place] [address] Care Team Providers Care Md Pediatric Allergist Name Role Phone Jamshid Duran MD Primary Care Provider [phone] Allergies Active Allergy Reactions Criticality Noted Date [...] Health Maintenance Due Date Last Done Comments Advance Care Planning 1950 Hepatitis C Virus Screening 1950 DTaP/Tdap/Td Vaccines (1 - Tdap) 02/16/1967 Pneumococcal Vaccines 50+ (1 of 1 - PCV) 02/16/1998 Zoster (Shingles) Vaccine (1 of 2) 02/16/1998 DXA Bone Density (Females,Ag es 65 and older) 02/16/2013 RSV Vaccine 60 years and old er and Patients (1 - 1-dose 75+ series) 02/16/2023 Influenza Vaccine 12/24/2024 COVID-19 Vaccine ( - 2023-2 5 season) 2025 Hepatitis B Vaccines Aged Out No long er eligible based on patient's age to complete this topic Insurance [facility] MEDICARE Care Teams Md Pediatric Allergist Relationship Specialty Start Date End Date Jamshid Duran MD [address] [place] [address] PCP - General 01/17/21
--- OUTSIDE RECORDS SUMMARY | 2025-02-07 21:02 | XMS_ITS | Clinical Summary ---
Author Organization [facility] Address [address] [place] [phone] Phone Care Team Providers Care Enrollment Specialist Name Role Phone Alysa Lucas NP Primary Care Provider [phone] Allergies Active Allergy Reactions Criticality Noted Date [...] mouth 1 (one) time each day. Active Active Problems Problem Noted Date Diagnosed Date [...] 1:00 PM EDT Office Visit Orthopedic Surgery - [address] [address] Jayme Saldaña MD Bilateral knee pain (Primary [...] 2:30 PM EST Office Visit Orthopedic Surgery - [place] [address] [facility] 250 [place] [address] Jayme Saldaña MD 175 [facility] 250 [place] [address] Health Maintenance Due Date Last Done Comments [...] Procedure Name Priority Date/Time Associated Diagnosis Comments MT ARTHROCENTESIS/ASP IRATION/INJECTION MAJOR JOINT/BURSA W/O U/S GUIDANCE Routine 01/04/2025 1:00 PM EDT Bilateral knee pain Primary osteoarthritis of left knee Primary osteoarthritis of right knee XR KNEE 4+ VIEWS BILAT Routine 01/04/2025 12:59 PM EDT Bilateral knee pain Primary osteoarthritis of left knee Primary osteoarthritis of right knee from Last 3 Months Results * MT ARTHROCENTESIS/ASPIRATION/INJECTION MAJOR JOINT/BURSA W/O U/S GUIDANCE (01/04/2025 1:00 PM EDT) Jayme Durán MD - 01/04/2025 1:00 PM EDT Jayme [...] with patient: Verbal Pre-procedure timeout performed: yes Jayme Saldaña MD IN CLINIC/BEDSIDE ORD ERABLES [...] x-rays obtained 03/10/2024 right knee now shows jhvy-[id number] articulation involving the lateral compartment on the lateral view, left knee also shows [id number] articulation involving lateral compartment. Jayme Saldaña MD IMG XR PROCEDURES Fin al Result from Last 3 Months Insurance [employer] [place] Care Teams Enrollment Specialist Relationship Specialty Start Date End Date Alysa Lucas NP [address] [place] [address] PCP - General 03/11/24
--- OUTSIDE RECORDS SUMMARY | 2025-02-07 21:02 | XMS_ITS | Encounter Summary ---
Author Organization [facility] Address [address] [place] [address] Phone Care Team Providers Care Industrial Engineering Analyst Name Role Phone Jamshid Duran MD Primary Care Provider [phone] Shannen Tubbs Unavailable Unavailable Wojciech Zuleta MD Unavailable [phone] Alysa Lucas NP Primary Care Provider + Encounter Details Date Type Department Care Team (Latest Contact Info) Description 11/15/2021 Transcribe Orders Virtual Department 30 [place] [address] Romaine Herbert MD [address] [place] [phone] RUQ pain (Primary Dx) Social History Tobacco Use Types [...] [facility] Pulmonary, Allergy and Critical Care Medicine [address] [place] [address] [place] [address] Ivan Reyes MD, MS 10 [facility] 2nd [place] [address] [email or web address] 04/14/2025 3:20 PM EST Office Visit [facility] 30 [place] [address] Wojciech Zuleta MD 30 [place] [address] [email or web address] documented as of this encounter Results * US ABDOMEN LIMITED RIGHT UPPER QUADRANT (11/20/2021 11:49 AM EDT) Anatomical Region Laterality Modality Abdomen Ultrasound 11/20/2021 11:5 1 AM EDT Impressions 11/20/2021 11:54 AM EDT 1.Hepatic steatosis. Evaluation of the left hepatic lobe given habitus and overlying bowel gas. 2.Poor visualization of the pancreas sonographically. 3.The gallbladder is surgically absent. Narrative 11/20/2021 11:54 AM EDT US ABDOMEN LIMITED RIGHT UPPER QUADRANT History: Right upper quadrant abdominal pain. TECHNIQUE: US Abdominal limited right upper quadrant. COMPARISON: There is no prior study available for comparison. FINDINGS: Pancreas: The pancreatic parenchyma is unable to visualize sonographically secondary to overlying bowel gas. Liver: Diffusely increased echogenicity consistent with fatty liver. Evaluation of the left hepatic lobe limited by patient habitus and overlying bowel gas. No focal hepatic lesions demonstrated sonographically. Main Portal Vein: Patent with normal direction of flow. Gallbladder: Surgically absent. Biliary: Normal. No intrahepatic or extrahepatic biliary ductal dilatation. The common bile duct is difficult to visualize measuring approximately 3 mm. Right Kidney: No stones or hydronephrosis. Procedure Note Claudine Perez MD - 11/20/2021 US ABDOMEN LIMITED RIGHT UPPER QUADRANT History: Right upper quadrant abdominal pain. TECHNIQUE: US Abdominal limited right upper quadrant. COMPARISON: There is no prior study available for comparison. FINDINGS: Pancreas: The pancreatic parenchyma is unable to visualize sonographicallysecondary to overlying bowel gas. Liver: Diffusely increased echogenicity consistent with fatty liver.Evaluation of the left hepatic lobe limited by patient habitus andoverlying bowel gas. No focal hepatic lesions demonstratedsonographically. Main Portal Vein: Patent with normal direction of flow. Gallbladder: Surgically absent. Biliary: Normal. No intrahepatic or extrahepatic biliary ductaldilatation. The common bile duct is difficult to visualize measuringapproximately 3 mm. Right Kidney: No stones or hydronephrosis. IMPRESSION: 1.Hepatic steatosis. Evaluation of the left hepatic lobe given habitus andoverlying bowel gas. 2.Poor visualization of the pancreas sonographically. 3.The gallbladder is surgically absent. us Romaine Herbert MD IMG US ABDOMEN Final Result documented in this encounter Visit Diagnoses Diagnosis RUQ pain- Primary Abdominal pain, right upper quadrant RUQ pain Abdominal pain, right upper quadrant documented in this encounter Care Teams Industrial Engineering Analyst Relationship Specialty Start Date End Date Jamshid Duran MD 46 [facility] [address] [place] [address] PCP - General Internal Medicine 01/22/19 11/29/22 Aly[facility] [place] [address] PCP - General Nurse Practitioner 11/30/22 Shannen Tubbs 01/22/19 Wojciech Zuleta MD [address] [place] [address] [email or web address] Primary Oncologist Medical Oncology 02/13/22 documented as of this encounter Additional Source Comments The information contained in this document represents components of the legal health record. It is not the complete legal health record.[facility]
== END 2025-02-07 15:58 | disposition home or self-care (01) ==
LOC: HO.HMGAL 15:44
PROVIDERS: PCP Internal Medicine; Visit Provider Registered Nurse Emergency
DX: J30.89 Other allergic rhinitis (principal)
CPT/HCPCS: 95117; 95165

== ENCOUNTER 2025-03-02 16:01 | Outpatient (AMB) | payer MEDICARE, MEDICAID, SELFPAY | END 2025-03-02 16:02 | disposition home or self-care (01) | LOC: HO.HMGAL 16:01 | PROVIDERS: PCP Physician Assistant Medical; Visit Provider Registered Nurse Emergency | DX: J30.89 Other allergic rhinitis (principal) | CPT/HCPCS: 95117; 95165 ==

== ENCOUNTER 2025-05-04 15:35 | Outpatient (AMB) | payer MEDICARE, MEDICAID, SELFPAY ==
--- OUTSIDE RECORDS SUMMARY | 2025-05-05 00:12 | XMS_ITS | Encounter Summary ---
Author Organization [facility] Address [address] [place] [address] Phone Care Team Providers Care Athletic Events Scorer Name Role Phone Shannen Tubbs Unavailable Unavailable Wojciech Zuleta MD Unavailable [phone] Alsya Lucas NP Primary Care Provider + Encounter Details Date Type Department Care Team (Audra Contact Info) Description 01/21/2023 Procedure Pass [facility] 30 [place] [address] Social History Tobacco Use Types Packs/Day Years [...] Upcoming Encounters Date Type Department Care Team (Audra briones Contact Info) Description 08/22/2025 3:00 PM EDT Office Visit [facility] Pulmonary, Allergy and Critical Care Medicine [address] [place] [address] Ivan Reyes MD, MS 10 [facility] 2nd [place] [address] 10/13/2025 3:40 PM EDT Office Visit [facility] 30 [place] [address] Wojciech Zuleta MD [address] [place] [address] [email or web address] documented as of this encounter Visit Diagnoses Not on filedocumented in this encounter Care Teams Athletic Events Scorer Relationship Specialty Start Date End Date Alysa Lucas NP [address] [place] [address] PCP - General Nurse Practitioner 11/30/22 Shannen Tubbs 01/22/19 Wojciech Zuleta MD [address] [place] [address] Primary Oncologist Medical Oncology 02/13/22 documented as of this encounter Additional Source Comments The information contained in this document represents components of the legal health record. It is not the complete legal health record.[facility]
--- OUTSIDE RECORDS SUMMARY | 2025-05-05 00:12 | XMS_ITS | Encounter Summary ---
Author Organization [facility] Address [address] [place] [address] Phone Care Team Providers Care Upholstered Goods Crafter Name Role Phone Shannen Tubbs Unavailable Unavailable Wojciech Zuleta MD Unavailable [phone] Alysa Lucas NP Primary Care Provider + Encounter Details Date Type Department Care Team (Late st Contact Info) Description 02/14/2023 Procedure Pass [facility] Endoscopy Admitting Dept Virtual Department 30 [place] [address] Social History Tobacco Use Types Packs/Day Years [...] Care Team (Late st Contact Info) Description 08/22/2025 3:00 PM EDT Office Visit [facility] Pulmonary, Allergy and Critical Care Medicine 10 [facility] [place] [address] Ivan Reyes MD, MS 10 [facility] 2nd [place] [address] 10/13/2025 3:40 PM EDT Office Visit [facility] 30 [place] [address] Wojciech Zuleta MD 30 [place] [address] [email or web address] documented as of this encounter Visit Diagnoses Not on filedocumented in this encounter Care Teams Upholstered Goods Crafter Relationship Specialty Start Date End Date Alysa Lucas NP [address] [place] [address] PCP - General Nurse Practitioner 11/30/22 Shannen Tubbs 01/22/19 Wojciech Zuleta MD [address] [place] [address] Primary Oncologist Medical Oncology 02/13/22 documented as of this encounter Additional Source Comments The information contained in this document represents components of the legal health record. It is not the complete legal health record.[facility]
--- OUTSIDE RECORDS SUMMARY | 2025-05-05 00:12 | XMS_ITS | Encounter Summary ---
Author Organization [facility] Address [address] [place] [address] Phone Care Team Providers Care Montessori Lead Teacher Name Role Phone Shannen Tubbs Unavailable Unavailable Wojciech Zuleta MD Unavailable [phone] Alysa Lucas NP Primary Care Provider + Reason for Referral * MRI/CAT Scan - Closed Specialty Diagnoses / Procedures Referred By Kristofer neff Referred To Contact Radiology Diagnoses Chronic vomiting Procedures MRI Brain CHG MRI BRAIN COMBO CHG MRI BRAIN Fiorella Norwood PA [address] [place] [address] Phone: tel: fax: Referral ID Status Reason Start Date Expiration Date Visits Re quested Visits Authorized [id number] Closed 02/15/2023 02/15/2023 1 1 Encounter Details Date Type Department Care Team (Latest Contact Info) Description 01/20/2023 Transcribe Orders Virtual Department 30 [place] [address] Fiorella Norwood PA [address] [place] [address] Chronic vomiting (Primary Dx) Social History Tobacco [...] Description 08/22/2025 3:00 PM EDT Office Visit [facility] Pulmonary, Allergy and Critical Care Medicine 10 [facility] [place] [address] Ivan Reyes MD, MS [address] [place] [address] 10/13/2025 3:40 PM EDT Office Visit [facility] 30 [place] [address] Wojciech Zuleta MD [address] [place] [address] documented as of this encounter Results * [...] alone documented in this encounter Care Teams Montessori Lead Teacher Relationship Specialty Start Date End Date Alysa Lucas NP [address] [place] [address] PCP - General Nurse Practitioner 11/30/22 Shannen Tubbs 01/22/19 Wojciech Zuleta MD [address] [place] [address] [email or web address] Primary Oncologist Medical Oncology 02/13/22 documented as of this encounter Additional Source Comments The information contained in this document represents components of the legal health record. It is not the complete legal health record.[facility]
--- OUTSIDE RECORDS SUMMARY | 2025-05-05 00:12 | XMS_ITS | Encounter Summary ---
Author Organization [facility] Address [address] [place] [address] Phone Care Team Providers Care Od Grinder Operator Name Role Phone Shannen Tubbs Unavailable Unavailable Wojciech Zuleta MD Unavailable [phone] Alysa Lucas NP Primary Care Provider + Encounter Details Date Type Department Care Team (Late st Contact Info) Description 05/28/2023 Procedure Pass [facility] Endoscopy Admitting Dept Virtual Department 30 [place] [address] Social History Tobacco Use Types Packs/Day Years [...] Description 08/22/2025 3:00 PM EDT Office [place] [facility] [place], Allergy and Critical Care Medicine 10 [facility] [place] [address] Ivan Reyes MD, MS 10 [facility] 2nd [place] [address] 10/13/2025 3:40 PM EDT Office [facility] 30 [place] [address] Wojciech Zuleta MD 30 [place] [address] [email or web address] documented as of this encounter Visit Diagnoses Not on filedocumented in this encounter Care Teams Od Grinder Operator Relationship Specialty Start Date End Date Alysa Lucas NP [address] [place] [address] PCP - General Nurse Practitioner 11/30/22 Shannen Tubbs 01/22/19 Wojciech Zuleta MD [address] [place] [address] Primary Oncologist Medical Oncology 02/13/22 documented as of this encounter Additional Source Comments The information contained in this document represents components of the legal health record. It is not the complete legal health record.[facility]
--- OUTSIDE RECORDS SUMMARY | 2025-05-05 00:12 | XMS_ITS | Encounter Summary ---
Author Organization [facility] Address [address] [place] [address] Phone Care Team Providers Care Slide Machine Tender Name Role Phone Shannen Tubbs Unavailable Unavailable Wojciech Zuleta MD Unavailable [phone] Alysa Lucas NP Primary Care Provider + Encounter Details Date Type Department Care Team (Late st Contact Info) Description 05/27/2023 Procedure Pass [facility] Endoscopy Admitting Dept Virtual Department 30 [place] [address] Social History Tobacco Use Types Packs/Day Years [...] Description 08/22/2025 3:00 PM EDT Office [place] [facility] [place]monary, Allergy and Critical Care Medicine 10 [facility] [place] [address] Ivan Reyes MD, MS 10 [facility] 2nd [place] [address] 10/13/2025 3:40 PM EDT Office Visit [facility] 30 [place] [address] Wojciech Zuleta MD 30 [place] [address] [email or web address] documented as of this encounter Visit Diagnoses Not on filedocumented in this encounter Care Teams Slide Machine Tender Relationship Specialty Start Date End Date Alysa Lucas NP [address] [place] [address] PCP - General Nurse Practitioner 11/30/22 Shannen Tubbs 01/22/19 Wojciech Zuleta MD [address] [place] [address] Primary Oncologist Medical Oncology 02/13/22 documented as of this encounter Additional Source Comments The information contained in this document represents components of the legal health record. It is not the complete legal health record.[facility]
--- OUTSIDE RECORDS SUMMARY | 2025-05-05 00:13 | XMS_ITS | Encounter Summary ---
Author Organization [facility] Address [address] [place] [address] Phone Care Team Providers Care Concrete Worker Name Role Phone Shannen Tubbs Unavailable Unavailable Wojciech Zuleta MD Unavailable [phone] Alysa Lucas NP Primary Care Provider + Encounter Details Date Type Department Care Team (Late st Contact Info) Description 07/15/2023 Procedure Pass [facility] Endoscopy Admitting Dept Virtual Department 30 [place] [address] Social History Tobacco Use Types Packs/Day Years [...] Description 08/22/2025 3:00 PM EDT [place] [facility] [place], Allergy and Critical Care Medicine 10 [facility] [place] [address] Ivan Reyes MD, MS 10 [facility] 2nd [place] [address] 10/13/2025 3:40 PM EDT Office Visit [facility] 30 [place] [address] Wojciech Zuleta MD 30 [place] [address] [email or web address] documented as of this encounter Visit Diagnoses Not on filedocumented in this encounter Care Teams Concrete Worker Relationship Specialty Start Date End Date Alysa Lucas NP [address] [place] [address] PCP - General Nurse Practitioner 11/30/22 Shannen Tubbs 01/22/19 Wojciech Zuleta MD [address] [place] [address] Primary Oncologist Medical Oncology 02/13/22 documented as of this encounter Additional Source Comments The information contained in this document represents components of the legal health record. It is not the complete legal health record.[facility]
--- OUTSIDE RECORDS SUMMARY | 2025-05-05 00:13 | XMS_ITS | Patient Health Record ---
Author Organization [facility] Address [address] [place] [address] Care Team Providers Care Insurance Sales Associate Name Role Phone AYSHA Sneed Unavailable [phone] Allergies Allergen (clinical drug ingredient) Drug/Non Drug Allergy documented on EMR Reaction Allergy Type Onset Date Status Penicillin body swells Drug Allergy Acti ve Reason For Referral No Information Medications Medication SIG (Take, Route, Frequency, Duration) Notes Start Date End Date Status Cymbalta 60 MG Capsule Delayed Release Particles 1 cap(s) orally bid; Duration: 30 day(s) Active Lipitor 20 MG Tablet 1 tab(s) orally once a day (at bedtime); Duration: 30 day(s) Active Ativan 0.5 MG Tablet 1 tab(s) orally bid; Duration: 30 day(s) Active Fosamax 70 MG Tablet 1 tab(s) orally once a week; Duration: 28 day(s) Active KlonoPIN 1 MG Tablet 1 tab(s) orally 3 times a day; Duration: 30 day(s) Active Percocet 5-325 MG Tablet 1 tab(s) orally bid; Duration: 10 day(s) Active OSCAL 500 500 MG TABLET 1 TAB(S) ORALLY BID; Duration: 0 *Please review for potential replacement for e-prescription and drug interaction check* Not-Taking Advil DIRECTED PRN NAME ONLY Conversion from Multum Review and pick correct strength-formulat ion from Medispan options. If intended option is not shown, discontinue and re-order from Quick Search. Active Esomeprazole Magnesium 20 MG Capsule Delayed Release 1 cap(s) orally once a day; Duration: 30 day(s) Active ALLERGY INJECTIONS DIRECTED Q2W *Please revie w for potential replacement for e-prescription and drug interaction check* Active CITRACAL 1TAB QD 1200mg *Please review for potential replacement for e-prescription and drug interaction check* Active OSCAL 500 500 MG TABLET 1 TAB(S) ORALLY BID; Duration: 0 *Please review for potential replacement for e-prescription and drug interaction check* Active Advil DIRECTED PRN NAME ONLY Conversion from Multum Review and pick correct strength-formulat ion from CoachMePlusspan options. If intended option is not shown, discontinue and re-order from Quick Search. Not-Taking Ativan 0.5 MG Tablet 1 tab(s) orally bid; Duration: 30 day(s) Active Magnesium 500 MG [place] 1 CAP PO ONCE DAILY NAME ONLY Conversion from Multum Review and pick correct strength-formulat ion from CoachMePlusspan options. If intended option is not shown, discontinue and re-order from Quick Search. Active ALLERGY INJECTIONS DIRECTED Q2W *Please revie w for potential replacement for e-prescription and drug interaction check* Not-Taking Cymbalta 60 MG Capsule Delayed Release Particles 1 cap(s) orally bid; Duration: 30 day(s) Active Fosamax 70 MG Tablet 1 tab(s) orally once a week; Duration: 28 day(s) Not-Taking Lipitor 20 MG Tablet 1 tab(s) orally once a day (at bedtime); Duration: 30 day(s) Active Percocet 5-325 MG Tablet 1 tab(s) orally bid; Duration: 10 day(s) Not-Taking Social History Tobacco Use: Social History Observation Description Date Details (start date - stop date) Never Smoker NA - NA Social History Tobacco Use: Social Info Question Answer Notes Smoking Are you a: never smoker Additional Details Category Social Info Options Details General 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 Problem Neck pain (88421263) Neck pain on left side (M54.2) Active confirmed Problem Abnormal weight loss (244024659) Abnormal weight loss (R63.4) Active confirmed Problem Family history of thyroid cancer (260130513) Family history of thyroid cancer (Z80.8) Active confirmed Problem Blood chemistry abnormal (220169817) High thyroid stimulating hormone (TSH) level (R79.89) Active confirmed Plan Of Treatment Future Test Test Name Order Date TSH WITH REFLEX TO FT4 11/04/2020 Insurance Providers Payer Name Payer Address Payer Phone Subscriber Number Group Number Insured Name Patient Relationship to Insured Coverage Start Date Coverage End Date [employer] MEDICARE ADVANTAGE [facility] [address] [facility] [place] [phone] [id number] GRETEL CHAVARRIA Self - patient is the insured Medical (General) History Medical History History ICD Code depression FMS migraine headache Scarlet fever allergies anxiety osteopenia does BMD with PCP Waldenstrom macroglobulinemia Dx 2011-Dr Martinez Surgical History Surgery Date(Month/Year) tonsillectomy D&C and hysterectomy gallbladder tendon repair - L ankle
--- OUTSIDE RECORDS SUMMARY | 2025-05-05 00:13 | XMS_ITS | Clinical Summary ---
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
--- OUTSIDE RECORDS SUMMARY | 2025-05-05 00:13 | XMS_ITS | Encounter Summary ---
Author Organization [facility] Address [address] [place] [address] Phone Care Team Providers Care Double End Trimmer Name Role Phone Jamshid Duran MD Primary Care Provider [phone] Shannen Tubbs Unavailable Unavailable Wojciech Zuleta MD Unavailable [phone] Alysa Lucas NP Primary Care Provider + Reason for Referral * Outpatient Procedure - Closed Specialty Diagnoses / Procedures Referred By Kristofer neff Referred To Contact Radiology Diagnoses Nausea and vomiting, unspecified vomiting type Procedures NM Gastric Emptying Romaine Herbert MD Phone: tel: fax: [email or web address] Referral ID Status Reason Start Date Expiration Date Visits Re quested Visits Authorized [id number] Closed 11/07/2021 11/07/2022 1 1 Encounter Details Date Type Department Care Team (Latest Contact Info) Description 11/07/2021 Transcribe Orders Virtual Department 30 [place] [address] Romaine Herbert MD [address] [place] [address] Nausea and vomiting, unspecified vomiting type (Primary [...] Description 08/22/2025 3:00 PM EDT Office Visit [facility] [place]monary, Allergy and Critical Care Medicine [address] [place] [address] [place] [address] Ivan Reyes MD, MS [address] [place] [address] [place] [address] [email or web address] 10/13/2025 3:40 PM EDT Office Visit [facility] Center at [address] [address] Wojciech Zuleta MD [address] [place] [address] [email or web address] documented as of this encounter Results * [...] emptying values as above. Romaine Herbert MD [facility] Final Result documented in this encounter Visit Diagnoses Diagnosis Nausea and vomiting, unspecified vomiting type- Primary Nausea and vomiting, unspecified vomiting type documented in this encounter Care Teams Double End Trimmer Relationship Specialty Start Date End Date Jamshid Duran MD [address] [place] [address] [address] [place] [address] PCP - General Internal Medicine 01/22/19 11/29/22 Alysa Lucas NP [address] [place] [address] PCP - General Nurse Practitioner 11/30/22 Shannen Tubbs 01/22/19 Wojciech Zuleta MD [address] [place] [address] [email or web address] Primary Oncologist Medical Oncology 02/13/22 documented as of this encounter Additional Source Comments The information contained in this document represents components of the legal health record. It is not the complete legal health record.[facility]
--- OUTSIDE RECORDS SUMMARY | 2025-05-05 00:13 | XMS_ITS | Encounter Summary ---
Author Organization [facility] Address [address] [place] [address] Phone Care Team Providers Care Jigmaker Name Role Phone Shannen Tubbs Unavailable Unavailable Wojciech Zuleta MD Unavailable [phone] Alysa Lucas NP Primary Care Provider + Encounter Details Date Type Department Care Team (Late Contact Info) Description 09/25/2023 Procedure Pass [facility], [facility] Scan - [facility] 30 [place] [address] Social History Tobacco Use Types Packs/Day Years [...] Critical Care Medicine [address] [place] [address] Ivan Reyes MD, MS 10 [facility] 2nd [place] [address] 10/13/2025 3:40 PM EDT Office Visit [facility] at [facility] 30 [place] [address] Wojciech Zuleta MD [address] [place] [address] documented as of this encounter Visit Diagnoses Not on filedocumented in this encounter Care Teams Jigmaker Relationship Specialty Start Date End Date Alysa Lucas NP [address] [place] [address] PCP - General Nurse Practitioner 11/30/22 Shannen Tubbs 01/22/19 Wojciech Zuleta MD [address] [place] [address] Primary Oncologist Medical Oncology 02/13/22 documented as of this encounter Additional Source Comments The information contained in this document represents components of the legal health record. It is not the complete legal health record.[facility]
--- OUTSIDE RECORDS SUMMARY | 2025-05-05 00:13 | XMS_ITS | Encounter Summary ---
Author Organization [facility] Address [address] [place] [address] Phone Care Team Providers Care Product Manufacturing Professional Name Role Phone Shannen Tubbs Unavailable Unavailable Wojciech Zuleta MD Unavailable [phone] Alysa Lucas NP Primary Care Provider + Encounter Details Date Type Department Care Team (Late Contact Info) Description 09/25/2023 Procedure Pass [facility], Ct Scan [facility] 30 [place] [address] Social History Tobacco Use Types Packs/Day Years [...] Critical Care Medicine [address] [place] [address] Ivan Reyes MD, MS 10 [facility] 2nd [place] [address] 10/13/2025 3:40 PM EDT Office Visit [facility] Center at [facility] 30 [place] [address] Wojciech Zuleta MD [address] [place] [address] documented as of this encounter Visit Diagnoses Not on filedocumented in this encounter Care Teams Product Manufacturing Professional Relationship Specialty Start Date End Date Alysa Lucas NP [address] [place] [address] PCP - General Nurse Practitioner 11/30/22 Shannen Tubbs 01/22/19 Wojciech Zuleta MD [address] [place] [address] Primary Oncologist Medical Oncology 02/13/22 documented as of this encounter Additional Source Comments The information contained in this document represents components of the legal health record. It is not the complete legal health record.[facility]
--- OUTSIDE RECORDS SUMMARY | 2025-05-05 00:13 | XMS_ITS | Encounter Summary ---
Author Organization [facility] Address [address] [place] [address] Phone Care Team Providers Care Rectifier Operator Name Role Phone Jamshid Duran MD Primary Care Provider [phone] Shannen Tubbs Unavailable Unavailable Wojciech Zuleta MD Unavailable [phone] Alysa Lucas NP Primary Care Provider + Encounter Details Date Type Department Care Team (Latest Contact Info) Description 11/07/2021 Transcribe Orders [facility] [place] [address] 2nd [place] [address] Romaine Herbert MD [address] [address] [email or web address] Abdominal pain, epigastric (Primary Dx); Nausea; Vomiting, [...] Description 08/22/2025 3:00 PM EDT Office Visit [facility] Pulmonary, Allergy and Critical Care Medicine [address] [place] [address] Ivan Reyes MD, MS 10 [facility] 2nd [place] [address] [email or web address] 10/13/2025 3:40 PM EDT Office Visit [facility] Center at [address] [address] Wojciech Zuleta MD [address] [place] [address] [email or web address] documented as of this encounter Results * Lipase (11/07/2021 1:53 PM EDT) [facility] LIPASE 38 16 - 63 U/L [facility] Blood 11/07/2021 1:53 PM EDT 11/07/2021 1:56 PM EDT us Romaine Herbert MD LAB BLOOD BKR ORDERABLES Final R esult [address] [address] * (ABNORMAL) Comprehensive metabolic panel (11/07/2021 1:53 PM EDT) Pathologist [facility] SODIUM 140 133 - 146 mmol/L [facility] POTASSIUM 5.4(H) 3.3 - 5.1 mmol/L [facility] CHLORIDE 105 96 - 108 mmol/L [facility] CO2 25 21 - 35 mmol/L [facility] BUN 11 6 - 19 mg/dL [facility] CREATININE 0.90 0.5 - 1.5 mg/dL [facility] GLUCOSE 104(H) 70 - 99 mg/dL [facility] ALBUMIN 4.4 3.9 - 4.8 g/dL [facility] TOTAL PROTEIN 7.1 6.5 - 8.0 g/dL [facility] CALCIUM 9.7 8.4 - 10.3 mg/dL [facility] ALKALINE PHOSPHATASE 76 39 - 117 U/L [facility] TOTAL BILIRUBIN 0.5 0.0 - 1.2 mg/dL [facility] AST 24 0 - 37 U/L [facility] ALT 18 0 - 40 U/L [facility] GLOBULIN 2.7 1 - 4.8 g/dL [facility] EGFR 68 >59 mL/min/1.7 3m2 [facility] Comment:Estimated glomerular filtration rate calculated using the CKD-EPI refit equation. ANION GAP 15 10 - 20 mmol/L [facility] Blood 11/07/2021 1:53 PM EDT 11/07/2021 1:56 PM EDT us Romaine Herbert MD LAB BLOOD BKR ORDERABLES Final R esult Performing Organization Address City/State/[facility] Co de Phone Number [address] [address] * CBC (11/07/2021 1:53 PM EDT) WBC 4.63 4.00 - 11.00 K/uL [facility] RBC 4.53 3.72 - 5.30 M/uL [facility] HGB 14.4 11.4 - 15.9 g/dL [facility] HCT 43.9 34.2 - 46.8 % [facility] PLT 316 140 - 430 K/uL [facility] MCV 96.9 78.0 - 97.0 fL [facility] MCH 31.8 25.0 - 33.0 pg [facility] MCHC 32.8 32.0 - 36.0 g/dL [facility] RDW 12.6 11.0 - 16.0 % [facility] MPV 11.9 8.4 - 12.8 fl [facility] NRBC 0.00 0 /100 WBCs [facility] ABSOLUTE NRBC 0.00 0 K/uL [facility] Blood 11/07/2021 1:53 PM EDT 11/07/2021 1:56 PM EDT us Romaine Herbert MD LAB BLOOD BKR ORDERABLES Final R esult [address] [address] documented in this encounter Visit Diagnoses Diagnosis Abdominal pain, epigastric- Primary Nausea Nausea alone Vomiting, unspecified vomiting type, unspecified whether nausea present Abdominal pain, right upper quadrant documented in this encounter Care Teams Rectifier Operator Relationship Specialty Start Date End Date Jamshid Duran MD 46 [facility]Note 3[facility] [address] [place] [address] PCP - General Internal Medicine 01/22/19 11/29/22 Alysa Lucas NP [address] [place] [address] PCP - General Nurse Practitioner 11/30/22 Shannen Tubbs 01/22/19 Wojciech Zuleta MD 30 [place] [address] [email or web address] Primary Oncologist Medical Oncology 02/13/22 documented as of this encounter Additional Source Comments The information contained in this document represents components of the legal health record. It is not the complete legal health record.[facility]
--- OUTSIDE RECORDS SUMMARY | 2025-05-05 00:13 | XMS_ITS | Encounter Summary ---
Author Organization [facility] Address [address] [place] [address] Phone Care Team Providers Care Hob Mill Operator Name Role Phone Shannen Tubbs Unavailable Unavailable Wojciech Zuleta MD Unavailable [phone] Alysa Lucas NP Primary Care Provider + Reason for Referral * Physical Therapy (Routine) - Closed Specialty Diagnoses / Procedures Referred By Kristofer neff Referred To Contact Physical Therapy Diagnoses Encounter for rehabilitation Katlin Aiken NP Phone: tel: fax: [facility] [address] [place] [address] Phone: tel: Referral ID Status Reason Start Date Expiration Date Visits Re quested Visits Authorized [id number] Closed 04/19/2024 04/19/2025 1 1 Encounter Details Date Type Department Care Team (Latest Contact Info) Description 04/19/2024 Transcribe Orders [facility] [address] [place] [address] Katlin Aiken NP [address] [phone] Encounter for rehabilitation (Primary Dx) Social History [...] Description 08/22/2025 3:00 PM EDT Office Visit [facility] Pulmonary, Allergy and Critical Care Medicine [address] [place] [address] Ivan Reyes MD, MS 10 [facility] 2nd [place] [address] 10/13/2025 3:40 PM EDT Office Visit [facility] [address] [place] [address] Wojciech Zuleta MD [address] [place] [address] [email or web address] Scheduled Referrals Name Type Priority Associated Diagnoses Orde r Schedule Ambulatory referral to [facility] Physical Therapy Outpatient Referral Routine Encounter for rehabilitation Ordered: 04/19/2024 documented as of this encounter Visit Diagnoses Diagnosis Encounter for rehabilitation- Primary documented in this encounter Care Teams Hob Mill Operator Relationship Specialty Start Date End Date Alysa Lucas NP [address] [place] [address] PCP - General Nurse Practitioner 11/30/22 Shannen Tubbs 01/22/19 Wojciech Zuleta MD [address] [place] [address] [email or web address] Primary Oncologist Medical Oncology 02/13/22 documented as of this encounter Additional Source Comments The information contained in this document represents components of the legal health record. It is not the complete legal health record.[facility]
--- OUTSIDE RECORDS SUMMARY | 2025-05-05 00:13 | XMS_ITS | Encounter Summary ---
Author Organization [facility] Address [address] [place] [address] Phone Care Team Providers Care Game Producer Name Role Phone Shannen Tubbs Unavailable Unavailable Wojciech Zuleta MD Unavailable [phone] Alysa Lucas NP Primary Care Provider + Encounter Details Date Type Department Care Team (Late Contact Info) Description 09/25/2023 Procedure Pass [facility], Ct Scan - [facility] [address] [place] [address] Social History Tobacco Use Types Packs/Day Years [...] Critical Care Medicine [address] [place] [address] Ivan Reyes MD, MS 10 [facility] 2nd [place] [address] 10/13/2025 3:40 PM EDT Office Visit [facility] [address] [place] [address] Wojciech Zuleta MD [address] [place] [address] documented as of this encounter Visit Diagnoses Not on filedocumented in this encounter Care Teams Game Producer Relationship Specialty Start Date End Date Alysa Lucas NP [address] [place] [address] PCP - General Nurse Practitioner 11/30/22 Shannen Tubbs 01/22/19 Wojciech Zuleta MD [address] [place] [address] Primary Oncologist Medical Oncology 02/13/22 documented as of this encounter Additional Source Comments The information contained in this document represents components of the legal health record. It is not the complete legal health record.[facility]
--- OUTSIDE RECORDS SUMMARY | 2025-05-05 00:13 | XMS_ITS | Encounter Summary ---
Author Organization [facility] Address [address] [place] [address] [place] [address] Phone Care Team Providers Care Marketing Professional Name Role Phone Shannen Tubbs Unavailable Unavailable Wojciech Zuleta MD Unavailable [phone] Alysa Lucas NP Primary Care Provider + Encounter Details Date Type Department Care Team (Late st Contact Info) Description 08/18/2024 Procedure Pass [facility], Ct Scan - [facility] 30 [place] [address] Social History Tobacco Use Types Packs/Day Years [...] Description 08/22/2025 3:00 PM EDT Office Visit [facility] Pulmonary, Allergy and Critical Care Medicine 10 [place] [address] Ivan Reyes MD, MS [address] [address] [email or web address] 10/13/2025 3:40 PM EDT Office Visit [facility] at [address] [address] Wojciech Zuleta MD [address] [place] [address] [email or web address] documented as of this encounter Visit Diagnoses Not on filedocumented in this encounter Care Teams Marketing Professional Relationship Specialty Start Date End Date Alysa Lucas NP [address] [place] [address] PCP - General Nurse Practitioner 11/30/22 Shannen Tubbs 01/22/19 Wojciech Zuleta MD [address] [place] [address] Primary Oncologist Medical Oncology 02/13/22 documented as of this encounter Additional Source Comments The information contained in this document represents components of the legal health record. It is not the complete legal health record.[facility]
--- OUTSIDE RECORDS SUMMARY | 2025-05-05 00:13 | XMS_ITS | Encounter Summary ---
Author Organization [facility] Address [address] [place] [address] [place] [address] Phone Care Team Providers Care Production Miner Name Role Phone Shannen Tubbs Unavailable Unavailable Wojciech Zuleta MD Unavailable [phone] Alysa Lucas NP Primary Care Provider + Encounter Details Date Type Department Care Team (Late st Contact Info) Description 12/29/2023 Procedure Pass [facility], Ct Scan - [facility] [address] [place] [address] Social History Tobacco Use Types Packs/Day Years [...] Description 08/22/2025 3:00 PM EDT Office [place] [facility] [place], Allergy and Critical Care Medicine 10 [place] [address] Ivan Reyes MD, MS [address] [address] [email or web address] 10/13/2025 3:40 PM EDT Office Visit [facility] at [address] [address] Wojciech Zuleta MD [address] [place] [address] [email or web address] documented as of this encounter Visit Diagnoses Not on filedocumented in this encounter Care Teams Production Miner Relationship Specialty Start Date End Date Alysa Lucas NP [address] [place] [address] PCP - General Nurse Practitioner 11/30/22 Shannen Tubbs 01/22/19 Wojciech Zuleta MD [address] [place] [address] Primary Oncologist Medical Oncology 02/13/22 documented as of this encounter Additional Source Comments The information contained in this document represents components of the legal health record. It is not the complete legal health record.[facility]
--- OUTSIDE RECORDS SUMMARY | 2025-05-05 00:13 | XMS_ITS | Clinical Summary ---
Author Organization [facility] Address [address] [place] [address] Phone Care Team Providers Care Hook Up Driver Name Role Phone Shannen Tubbs Unavailable Unavailable Wojciech Zuleta MD Unavailable [phone] Alysa Lucas DIE SINKER Primary Care Provider + Allergies Active Allergy [...] 09/24/2024 Pulmonary nodules 09/24/2024 Assessment & Plan (02/10/2025 3:42 PM EDT): Plan repeat chest CT in 6 months and return to see me thereafter. Orders: CT Chest; Future Assessment & Plan (09/24/2024 3:32 PM EDT): Will be reimaged in [address] scan. Ground glass opacity present on imaging of lung 08/18/2024 Assessment & Plan (02/10/2025 3:42 PM EDT): This has essentially resolved, and only minimal, faint patchy ground glass opacities similar to what was seen in September 2023 persist. We will continue to follow with a repeat chest CT in 6 months given the new 2 mm pulmonary nodule noted on the recent imaging study. Orders: CT Chest; Future Assessment & Plan (09/24/2024 3:32 PM EDT): [...] with bronchodilator, Lung Volumes, DLCO; Performing Location: [place]; Future albuterol 90 mcg/actuation inhaler 2-4 puff [...] Encounters Date Type Department Care Team Description 04/28/2025 Transcribe Orders [facility] Pulmonary, Allergy and Critical Care Medicine 10 [place] [address] Alysa Lucas NP 04/14/2025 3:20 PM EST Office Visit [facility] at [address] [address] Wojciech Zuleta MD Waldenstrom's macroglobulinemia (Primary Dx) 04/04/2025 Orders Only [facility] [place] at [address] [address] Jayme Champion, SAMPSON Waldenstrom's macroglobulinemia (Primary Dx) 02/10/2025 3:00 PM EDT Office Visit [facility] Pulmonary, Allergy and Critical Care Medicine [address] [place] [address] Ivan Reyes MD, MS Ground glass opacity present on imaging of lung (Primary Dx); Pulmonary nodules 02/04/2025 1:41 PM EDT - 02/04/2025 11:59 PM EDT Hospital Encounter [facility] PFT [facility] [address] [place] [address] Ivan Reyes MD, MS Discharge Disposition: Home or Self Care from Last 3 Months Immunizations Immunization Administration [...] Sign Reading Time Taken Comments Blood Pressure 134/95 04/14/2025 3:32 PM EST Pulse 80 04/14/2025 3:32 PM EST Temperature 36.7 C (98.1 F) 04/14/2025 3:32 PM EST Respiratory Rate 16 02/10/2025 2:37 PM EDT Oxygen Saturation 94% 04/14/2025 3:32 PM EST Inhaled Oxygen Concentration - - Weight 75.9 kg (167 lb 6.4 oz) 04/14/2025 3:32 P M EST Height 160.2 cm (5' 3.07 ) 10/05/2024 3:04 PM ED T Body Mass Index 29.59 10/05/2024 3:04 PM EDT Plan of Treatment Upcoming Encounters Date Type Department Care Team (Late st Contact Info) Description 08/22/2025 3:00 PM EDT Office Visit [facility] Pulmonary, Allergy and Critical Care Medicine 10 [facility] [place] [address] Ivan Reyes MD, MS 10 [facility] 2nd [place] [address] 10/13/2025 3:40 PM EDT Office Visit [facility] at [facility] 30 [place] [address] Wojciech Zuleta MD [address] [place] [phone] Health Maintenance Due Date Last Done Comments [...] SCREENING (On ce After 26 Yrs) Completed 04/14/2025 HEPATITIS A VACCINES Aged Out No long [...] Procedure Name Priority Date/Time Associated Diagnosis Comments CBC AND DIFFERENTIAL Routine 04/04/2025 3:44 PM EST Waldenstrom's macroglobulinemia MONOCLONAL PROTEIN STUDY, QUANTITATIVE Routine 04/04/2025 3:44 PM EST Waldenstrom's macroglobulinemia FREE LIGHT CHAINS, SERUM Routine 04/04/2025 3:44 PM EST Waldenstrom's macroglobulinemia BETA-2 MICROGLOBULIN, BLOOD Routine 04/04/2025 3:44 PM EST Waldenstrom's macroglobulinemia IMMUNOGLOBULINS IGG, IGA, IGM Routine 04/04/2025 3:44 PM EST Waldenstrom's macroglobulinemia COMPREHENSIVE METABOLIC PANEL (CMP) Routine 04/04/2025 3:44 PM EST Waldenstrom's macroglobulinemia CBC AND DIFFERENTIAL Routine 04/04/2025 3:44 PM EST Waldenstrom's macroglobulinemia PULMONARY FUNCTION TEST Routine 02/04/2025 2:16 PM EDT Ground glass opacity present on imaging of lung from Last 3 Months Results * (ABNORMAL) Immunoglobulins IgG, IgA, IgM (04/04/2025 3:44 PM EST) Immunoglobulin G 542(L) 700 - 1,600 mg/dL 04/04/2025 8:10 PM [facility] Immunoglobulin A 66(L) 70 - 400 mg/dL 04/04/2025 8:10 PM EST [facility] Immunoglobulin M 1,147(H) 40 - 230 mg/dL 04/04/2025 8:10 PM [facility] Blood (Blood) Venipuncture / Unknown 04/04/2025 3:44 PM EST 04/04/2025 3:44 PM EST us Wojciech Zuleta MD LAB BLOOD BKR ORDERABLES Final Result [facility] [address] [place], [place] [id number] * Comprehensive Metabolic Panel (CMP) (04/04/2025 3:44 PM EST) Sodium 139 136 - 145 mmol/L 04/04/2025 7:50 PM [facility] Potassium 4.0 3.4 - 5.1 mmol/L 04/04/2025 7:50 PM [facility] Chloride 103 98 - 107 mmol/L 04/04/2025 7:50 PM [facility] CO2 24 20 - 31 mmol/L 04/04/2025 7:50 PM [facility] Anion Gap 12 3 - 17 mmol/L 04/04/2025 7:50 PM [facility] BUN 10 6 - 23 mg/dL 04/04/2025 7:50 PM [facility] Creatinine 0.90 0.50 - 1.00 mg/dL 04/04/2025 7:50 PM [facility] eGFR 66 >59 mL/min/1.7 3m2 04/04/2025 7:50 PM [facility] Comment:Estimated glomerular filtration rate calculated using the CKD-EPI refit equation. Glucose 87 70 - 99 mg/dL 04/04/2025 7:50 PM [facility] Calcium 9.8 8.5 - 10.5 mg/dL 04/04/2025 7:50 PM [facility] AST 18 <33 U/L 04/04/2025 7:50 PM [facility] ALT 10 <34 U/L 04/04/2025 7:50 PM [facility] Alkaline Phosphatase 76 40 - 130 U/L 04/04/2025 7:50 PM [facility] Bilirubin, Total 0.4 0.0 - 1.2 mg/dL 04/04/2025 7:50 PM [facility] Total Protein 7.0 6.4 - 8.3 g/dL 04/04/2025 7:50 PM [facility] Albumin 3.9 3.5 - 5.2 g/dL 04/04/2025 7:50 PM EST [facility] Globulin 3.1 1.9 - 4.1 g/dL 04/04/2025 7:50 PM EST [facility] Blood (Blood) Venipuncture / Unknown 04/04/2025 3:44 PM EST 04/04/2025 3:44 PM EST us Wojciech Zuleta MD LAB BLOOD BKR ORDERABLES Final Result [facility] [address] [place] [address] * (ABNORMAL) Monoclonal Protein Study, Quantitative (04/04/2025 3:44 PM EST) M-Protein GK DNR 04/07/2025 11:35 AM EST [facility] Loopback M-Protein GL DNR 04/07/2025 11:35 AM EST [facility] Zaarly M-Protein AK DNR 04/07/2025 11:35 AM EST [facility] Zaarly M-Protein AL DNR 04/07/2025 11:35 AM EST [facility] Zaarly M-Protein MK 0.757(H) g/dL 04/07/2025 11:35 AM EST [facility] Zaarly M-Protein ML DNR 04/07/2025 11:35 AM EST [facility] Loopback Glycosylation DNR 04/07/2025 11:35 AM EST [facility] Zaarly Flag, M-Protein Isotype Positive(A) Negative 04/07/2025 11:35 AM EST [facility] Zaarly QMPTS Interpretation SEE COMMENTS 04/07/2025 11:35 AM EST [facility] Zaarly Comment: RESULT: IgM kappa 0.757 g/dL ADDITIONAL INFORMATION The submitted sample was assayed by five separate immunopurifications for IgG, IgA, IgM, kappa and lambda. The result reflects the findings of either no monoclonal protein detected or those monoclonal immunoglobulins that were detected. This test was developed and its performance characteristics determined by [facility] in a manner consistent with CLIA requirements. This test has not been cleared or approved by the U.S. Food and Drug Administration. Immunoglobulin A (IgA), S 71 61 - 356 mg/dL 04/07/2025 11:35 AM EST [facility] Immunoglobulin M (IgM), S 1090(H) 37 - 286 mg/dL 04/07/2025 11:35 AM EST [facility] Immunoglobulin G (IgG), S 569(L) 767 - 1590 mg/dL 04/07/2025 11:35 AM EST [facility] Therapeutic Antibody Administered? Unknown 04/07/2025 11:35 AM EST [facility] Blood (Blood) Venipuncture / Unknown 04/04/2025 3:44 PM EST 04/04/2025 3:44 PM EST us Wojciech Zuleta MD LAB BLOOD BKR ORDERABLES Final Result [place] [facility]) [facility] [address] [phone] * (ABNORMAL) CBC and Differential (04/04/2025 3:44 PM EST) WBC 7.36 4.00 - 11.00 K/uL 04/04/2025 7:24 PM [facility] RBC 4.30 4.00 - 5.20 M/uL 04/04/2025 7:24 PM [facility] Hemoglobin 13.2 12.0 - 16.0 g/dL 04/04/2025 7:24 PM [facility] Hematocrit 41.6 36.0 - 46.0 % 04/04/2025 7:24 PM [facility] MCV 96.7 80.0 - 100.0 fL 04/04/2025 7:24 PM [facility] MCH 30.7 27.0 - 31.0 pg 04/04/2025 7:24 PM [facility] MCHC 31.7(L) 32.0 - 36.0 g/dL 04/04/2025 7:24 PM [facility] MPV 11.1 8.4 - 12.0 fL 04/04/2025 7:24 PM [facility] RDW-CV 13.2 11.5 - 14.5 % 04/04/2025 7:24 PM [facility] PLT 393 150 - 450 K/uL 04/04/2025 7:24 PM [facility] Neutrophils 64.3 % 04/04/2025 7:24 PM [facility] Lymphocytes 19.8 % 04/04/2025 7:24 PM [facility] Monocytes 10.1 % 04/04/2025 7:24 PM [facility] Eosinophils 4.3 % 04/04/2025 7:24 PM [facility] Basophils 1.2 % 04/04/2025 7:24 PM [facility] Imm Grans 0.3 % 04/04/2025 7:24 PM [facility] NRBC 0.0 <=0.0 /100 WBCs 04/04/2025 7:24 PM [facility] Absolute Neutrophils 4.73 1.92 - 7.60 K/uL 04/04/2025 7:24 PM [facility] Absolute Lymphocytes 1.46 0.72 - 4.10 K/uL 04/04/2025 7:24 PM [facility] Absolute Monocytes 0.74 0.16 - 1.10 K/uL 04/04/2025 7:24 PM [facility] Absolute Eosinophils 0.32 0.00 - 0.50 K/uL 04/04/2025 7:24 PM [facility] Absolute Basophils 0.09 0.00 - 0.15 K/uL 04/04/2025 7:24 PM [facility] Absolute Imm Grans 0.02 0.00 - 0.09 K/uL 04/04/2025 7:24 PM [facility] Absolute NRBC 0.00 <=0.00 K cells/uL 04/04/2025 7:24 PM [facility] Absolute Neutrophils 4.73 1.92 - 7.60 K/uL 04/04/2025 7:24 PM [facility] Comment:Automated cell count . Manual ANC may differ if performed. Diff Type Auto 04/04/2025 7:24 PM EST [facility] Blood (Blood) Venipuncture / Unknown 04/04/2025 3:44 PM EST 04/04/2025 3:44 PM EST Wojciech Zuleta MD LAB BLOOD BKR ORDERABLES Final Result [address] [address] * (ABNORMAL) Light Chains, Free, Serum (04/04/2025 3:44 PM EST) [place] Free Light Chain, S 6.09(H) 0.3300 - 1.94 mg/dL 04/06/2025 10:53 AM EST [facility] Lambda Free Light Chain, S 1.18 0.5700 - 2.63 mg/dL 04/06/2025 10:53 AM EST [facility] [place]/Lambda FLC Ratio 5.16(H) 0.2600 - 1.65 04/06/2025 10:53 AM EST [facility] Blood (Blood) Venipuncture / Unknown 04/04/2025 3:44 PM EST 04/04/2025 3:44 PM EST us Wojciech Zuleta MD LAB BLOOD BKR ORDERABLES Final Result PAULIE SWEET) [facility] [address] [phone] * (ABNORMAL) Beta-2 Microglobulin, Blood (04/04/2025 3:44 PM EST) Beta-2 Microglobulin 3.07(H) 0.80 - 2.34 mcg/mL 04/06/2025 2:08 PM EST [facility] Blood (Blood) Venipuncture / Unknown 04/04/2025 3:44 PM EST 04/04/2025 3:44 PM EST us Wojciech Zuleta MD LAB BLOOD BKR ORDERABLES Final Result [facility] [address] [place] [address] * Pulmonary Function Test Reason for Exam: Other (specify) (groundglass opacities on chest CT); Type of PFT Test: Spirometry with bronchodilator, Lung Volumes, DLCO; Performing Location: [place] (02/04/2025 2:16 PM EDT) FEV1 2.21 liters [...] response. Technical Note: As of 04/06/2024, the [place] Pulmonary Function Testing (PFT) Laboratory transitioned from [...] please contact the interpreting physician or PFT laboratory administrative director. For further discussion of this issue please see Felicia [facility] 2022;207(5):978. Please Note: Not all PFT labs within, or outside of, our system will be transitioning to new reference equations at the same time. For this reason, please pay close attention to absolute values when comparing results done at different testing locations within or outside of our system. us Ivan Reyes MD, MS PFT ORDERABLES Final Re sult from Last 3 Months Insurance [facility] MEDICARE HMO REPLACEMENT [facility] MEDICARE HMO REPLACEMENT MEDICARE PART [facility] MEDICARE HMO REPLACEMENT MEDICARE HMO REPLACEMENT MEDICARE HMO REPLACEMENT [place] [id number] [facility] MEDICARE HMO REPLACEMENT MEDICARE HMO REPLACEMENT MEDICARE PART A & B Member Subscriber Plan / Payer (Ef fective 2014-Present) Name:Lisbet Albright Member ID:[id number] Relation to Subscriber:Self Name:Jose Ramon Lisbet Subscriber ID:[id number] Payer ID:[id number] Group ID:Not on file Type:Medicare Address: [facility] [employer] [facility]. [address] [place] [address] [facility] MEDICARE HMO REPLACEMENT MEDICARE PART A [facility] MEDICARE HMO REPLACEMENT [facility] Care Teams Hook Up Driver Relationship Specialty Start Date End Date Alysa Lucas NP [address] [place] [phone] PCP - General Nurse Practitioner 11/30/22 Shannen Tubbs 01/22/19 Wojciech Zuleta MD [address] [place] [address] [email or web address] Primary Oncologist Medical Oncology 02/13/22 Additional Source Comments The information contained in this document represents components of the legal health record. It is not the complete legal health record.[facility]
--- OUTSIDE RECORDS SUMMARY | 2025-05-05 00:13 | XMS_ITS | Encounter Summary ---
Author Organization [facility] Address [address] [place] [phone] Phone Care Team Providers Care Packing Attendant Name Role Phone Shannen Tubbs Unavailable Unavailable Wojciech Zuleta MD Unavailable [phone] Alysa Lucas NP Primary Care Provider + Encounter Details Date Type Department Care Team (Late st Contact Info) Description 06/02/2023 Procedure Pass [facility] Endoscopy Admitting Dept Virtual Department [address] [place] [address] Social History Tobacco Use Types Packs/Day Years [...] Description 08/22/2025 3:00 PM EDT Office Visit [facility] [place], Allergy and Critical Care Medicine [address] [place] [address] Ivan Reyes MD, MS 10 [facility] 2nd [place] [address] 10/13/2025 3:40 PM EDT Office Visit [facility] [address] [place] [address] Wojciech Zuleta MD 30 [place] [address] [email or web address] documented as of this encounter Visit Diagnoses Not on filedocumented in this encounter Care Teams Packing Attendant Relationship Specialty Start Date End Date Alysa Lucas NP [address] [place] [address] PCP - General Nurse Practitioner 11/30/22 Shannen Tubbs 01/22/19 Wojciech Zuleta MD [address] [place] [id number] Primary Oncologist Medical Oncology 02/13/22 documented as of this encounter Additional Source Comments The information contained in this document represents components of the legal health record. It is not the complete legal health record.[facility]
--- OUTSIDE RECORDS SUMMARY | 2025-05-05 00:13 | XMS_ITS | Encounter Summary ---
Author Organization [facility] Address [address] [place] [address] [place] [address] Phone Care Team Providers Care Agricultural Economist Name Role Phone Shannen Tubbs Unavailable Unavailable Wojciech Zuleta MD Unavailable [phone] Alysa Lucas NP Primary Care Provider + Encounter Details Date Type Department Care Team (Late st Contact Info) Description 09/24/2024 Procedure Pass [facility], Ct Scan - [facility] [address] [place] [address] Social History Tobacco Use Types Packs/Day Years [...] Description 08/22/2025 3:00 PM EDT Office Visit [facility] [place]monary, Allergy and Critical Care Medicine 10 [place] [address] Ivan Reyes MD, MS [address] [address] [email or web address] 10/13/2025 3:40 PM EDT Office Visit [facility] at [address] [address] Wojciech Zuleta MD [address] [place] [address] [email or web address] documented as of this encounter Visit Diagnoses Not on filedocumented in this encounter Care Teams Agricultural Economist Relationship Specialty Start Date End Date Alysa Lucas NP [address] [place] [address] PCP - General Nurse Practitioner 11/30/22 Shannen Tubbs 01/22/19 Wojciech Zuleta MD [address] [place] [address] Primary Oncologist Medical Oncology 02/13/22 documented as of this encounter Additional Source Comments The information contained in this document represents components of the legal health record. It is not the complete legal health record.[facility]
--- OUTSIDE RECORDS SUMMARY | 2025-05-05 00:13 | XMS_ITS | Encounter Summary ---
Author Organization [facility] Address [address] [place] [address] Phone Care Team Providers Care Ship Carpenter Name Role Phone Jamshid Duran MD Primary Care Provider [phone] Shannen Tubbs Unavailable Unavailable Wojciech Zuleta MD Unavailable [phone] Alysa Lucas NP Primary Care Provider + Encounter Details Date Type Department Care Team (Latest Contact Info) Description 07/12/2021 Transcribe Orders Virtual Department 30 [place] [address] Romaine Herbert MD [address] [place] [address] [email or web address] Vomiting, intractability of vomiting not specified, presence [...] Department Care Team ( Contact Info) Description 08/22/2025 3:00 PM EDT Office Visit [facility] Pulmonary, Allergy and Critical Care Medicine [address] [place] [address] Ivan Reyes MD, MS 10 [facility] 2nd [place] [address] 10/13/2025 3:40 PM EDT Office Visit [facility] 30 [place] [address] Wojciech Zuleta MD 30 [place] [address] [email or web address] documented as of this encounter Visit Diagnoses Diagnosis Vomiting, intractability of vomiting not specified, presence of nausea not specified, unspecified vomiting type- Primary documented in this encounter Care Teams Ship Carpenter Relationship Specialty Start Date End Date Jamshid Duran MD [address] [facility] [address] [place] [address] PCP - General Internal Medicine 01/22/19 11/29/22 Alysa Lucas NP [address] [place] [address] PCP - General Nurse Practitioner 11/30/22 Shannen Tubbs 01/22/19 Wojciech Zuleta MD [address] [place] [address] Primary Oncologist Medical Oncology 02/13/22 documented as of this encounter Additional Source Comments The information contained in this document represents components of the legal health record. It is not the complete legal health record.[facility]
--- OUTSIDE RECORDS SUMMARY | 2025-05-05 00:13 | XMS_ITS | Encounter Summary ---
Author Organization [facility] Address [address] [place] [address] Phone Care Team Providers Care Supervisor Tower Name Role Phone Jamshid Duran MD Primary Care Provider [phone] Shannen Tubbs Unavailable Unavailable Wojciech Zuleta MD Unavailable [phone] Alysa Lucas NP Primary Care Provider + Encounter Details Date Type Department Care Team (Latest Contact Info) Description 11/15/2021 Transcribe Orders Virtual Department 30 [place] [address] Romaine Herbert MD [address] [place] [address] [id number] RUQ pain (Primary Dx) Social History Tobacco [...] Description 08/22/2025 3:00 PM EDT Office Visit [facility] Pulmonary, Allergy and Critical Care Medicine [address] [place] [address] [place] [address] Ivan Reyes MD, MS 10 [facility] 2nd [place] [address] [email or web address] 10/13/2025 3:40 PM EDT Office Visit [facility] 30 [place] [address] Wojciech Zuleta MD 30 [place] [address] [email or web address] documented as of this encounter Results * [...] quadrant documented in this encounter Care Teams Supervisor Tower Relationship Specialty Start Date End Date Jamshid Duran MD 46 [facility] [address] [place] [address] PCP - General Internal Medicine 01/22/19 11/29/22 Alysa Lucas NP [address] [place] [address] PCP - General Nurse Practitioner 11/30/22 Shannen Tubbs 01/22/19 Wojciech Zuleta MD [address] [place] [address] Primary Oncologist Medical Oncology 02/13/22 documented as of this encounter Additional Source Comments The information contained in this document represents components of the legal health record. It is not the complete legal health record.[facility]
--- OUTSIDE RECORDS SUMMARY | 2025-05-05 00:13 | XMS_ITS | Clinical Summary ---
Author Organization [facility] Address [address] [place] [address] Care Team Providers Care Drywall Carrier Name Role Phone Jamshid Duran MD Primary Care Provider [phone] Allergies Active Allergy Reactions Criticality Noted Date [...] es 65 and older) 02/16/2013 RSV Vaccine 50 years and old er and Patients (1 - 1-dose 75+ series) 02/16/2023 Influenza Vaccine 12/24/2024 COVID-19 Vaccine ( - 2023-2 5 season) 2025 Hepatitis B Vaccines Aged Out No long er eligible based on patient's age to complete this topic Insurance [facility] MEDICARE Care Teams Drywall Carrier Relationship Specialty Start Date End Date Jamshid Duran MD [address] [place] [address] PCP - General 01/17/21
--- OUTSIDE RECORDS SUMMARY | 2025-05-05 00:14 | XMS_ITS | Encounter Summary ---
Author Organization [facility] Address [address] [place] [address] Phone Care Team Providers Care Street Light Inspector Name Role Phone Jamshid Duran MD Primary Care Provider [phone] Shannen Tubbs Unavailable Unavailable Wojciech Zuleta MD Unavailable [phone] Alysa Lucas NP Primary Care Provider + Encounter Details Date Type Department Care Team (Late Contact Info) Description 12/21/2021 Procedure Pass [facility], Ct Scan - [address] [address] Social History Tobacco Use Types Packs/Day Years [...] Pulmonary, Allergy and Critical Care Medicine 10 [facility] [place] [address] Ivan Reyes MD, MS 10 [facility] 2nd [place] [address] 10/13/2025 3:40 PM EDT Office Visit [facility] 30 [place] [address] Wojciech Zuleta MD 30 [place] [address] [email or web address] documented as of this encounter Visit Diagnoses Not on filedocumented in this encounter Care Teams Street Light Inspector Relationship Specialty Start Date End Date Jamshid Duran MD [address] [place] [address] PCP - General Internal Medicine 01/22/19 11/29/22 Alysa Lucas NP [address] [place] [address] PCP - General Nurse Practitioner 11/30/22 Shannen Tubbs 01/22/19 Wojciech Zuleta MD 30 [place] [address] [email or web address] Primary Oncologist Medical Oncology 02/13/22 documented as of this encounter Additional Source Comments The information contained in this document represents components of the legal health record. It is not the complete legal health record.[facility]
== END 2025-05-04 15:36 | disposition home or self-care (01) ==
LOC: HO.HMGAL 15:35
PROVIDERS: PCP Physician Assistant Medical; Visit Provider Registered Nurse Emergency
DX: J30.89 Other allergic rhinitis (principal)
CPT/HCPCS: 95117; 95165